=== PATIENT | male | born 1955 | race Caucasian/White ===

== ENCOUNTER → 2018-02-02 09:16 | Outpatient (CLI) | payer BC, SELFPAY ==
[2018-02-02 10:11] LABS: Alanine Aminotransferase 26 U/L (12-78); Albumin Level 3.6 gm/dL (3.4-5.0); Albumin/Globulin Ratio 1.1 (1.1-1.8); Alkaline Phosphatase 72 U/L (46-116); Anion Gap 10.8 mEq/L (5-15); Aspartate Amino Transferase 16 U/L (15-37); Bilirubin,Total 0.3 mg/dL (0.2-1.0); Blood Urea Nitrogen 25 mg/dL (7-18); Calcium 8.8 mg/dL (8.5-10.1); Carbon Dioxide 30 mmol/L (21.0-32.0); Chloride 105 mmol/L (98-107); Chol/HDL Ratio 4.5 (1-3.5); Cholesterol 191 mg/dL (140-200); Creatinine,Serum 1.09 mg/dL (0.70-1.30); Estimated Glomerular Filt Rate 69 ml/min (>60); GFR (African American) 83 ML/MIN (>60); Globulin 3.3 gm/dl (1.3-3.2); Glucose 136 mg/dL (74-106); HDL Cholesterol 42 mg/dL (27-67); LDL Cholesterol 118 mg/dL (0-130); Potassium 4.8 mmoL/L (3.5-5.1); Sodium 141 mmol/L (136-145); Total Protein,Serum 6.9 gm/dL (6.4-8.2); Triglycerides 157 mg/dL (30-200); VLDL Cholesterol 31 mg/dL (0-40)
[2018-02-02 10:25] LABS: Hemoglobin A1C 6.6 % (0.0-7.0)
== END ==
PROVIDERS: Visit Provider Nurse Practitioner Family
DX: E11.29 Type 2 diabetes mellitus with other diabetic kidney complication (principal); I10 Essential (primary) hypertension
CPT/HCPCS: 36415; 80053; 80061; 83036

== ENCOUNTER → 2019-03-17 10:17 | Outpatient (CLI) | payer BC, SELFPAY ==
[2019-03-17 11:06] LABS: Basophils # 0.1 K/mm3 (0-0.2); Basophils % 0.8 % (0.1-2.0); Eosinophils # 0.5 K/mm3 (0.0-0.4); Eosinophils % 4.9 % (0.1-12.0); Hematocrit 40.5 % (42.0-52.0); Hemoglobin 12.8 g/dL (14.1-18.0); Lymphocytes # 2.9 K/mm3 (0.7-4.5); Lymphocytes % 31.1 % (10-50); Mean Corpuscular HGB Conc 31.5 g/dL (31.8-35.4); Mean Corpuscular Hemoglobin 28.2 pg (27.0-31.2); Mean Corpuscular Volume 89.3 fl (80-94); Mean Platelet Volume 7.7 fl (7.4-10.4); Monocytes # 0.5 K/mm3 (0.1-1.0); Neutrophils # 5.4 K/mm3 (1.8-7.8); Neutrophils % 58.3 % (37.0-80.0); Platelet Count 295 K/mm3 (142-424); Red Blood Count 4.53 M/mm3 (4.60-6.20); Red Cell Distribution Width 13.1 % (11.5-17.5); White Blood Count 9.3 K/mm3 (4.8-10.8)
[2019-03-17 11:46] LABS: Hemoglobin A1C 6.3 % (0.0-7.0)
[2019-03-17 12:59] LABS: Alanine Aminotransferase 24 U/L (12-78); Albumin Level 3.6 gm/dL (3.4-5.0); Albumin/Globulin Ratio 1.2 (1.1-1.8); Alkaline Phosphatase 66 U/L (46-116); Anion Gap 13.9 mEq/L (5-15); Aspartate Amino Transferase 16 U/L (15-37); Bilirubin,Total 0.3 mg/dL (0.2-1.0); Blood Urea Nitrogen 23 mg/dL (7-18); Calcium 9.3 mg/dL (8.5-10.1); Carbon Dioxide 28 mmol/L (21.0-32.0); Chloride 107 mmol/L (98-107); Chol/HDL Ratio 4.2 (1-3.5); Cholesterol 174 mg/dL (140-200); Creatinine,Serum 1.24 mg/dL (0.70-1.30); Estimated Glomerular Filt Rate 59 ml/min (>60); GFR (African American) 71 ML/MIN (>60); Globulin 3.1 gm/dl (1.3-3.2); Glucose 115 mg/dL (74-106); HDL Cholesterol 41 mg/dL (27-67); LDL Cholesterol 100 mg/dL (0-130); Potassium 4.9 mmoL/L (3.5-5.1); Sodium 144 mmol/L (137-145); Thyroid Stimulating Hormone 1.81 uIU/ml (0.358-3.740); Total Protein,Serum 6.7 gm/dL (6.4-8.2); Triglycerides 166 mg/dL (30-200); VLDL Cholesterol 33 mg/dL (0-40)
== END ==
PROVIDERS: Visit Provider Nurse Practitioner Family
DX: I10 Essential (primary) hypertension (principal); E78.5 Hyperlipidemia, unspecified; E11.29 Type 2 diabetes mellitus with other diabetic kidney complication; Z79.84 Long term (current) use of oral hypoglycemic drugs
CPT/HCPCS: 36415; 80053; 80061; 83036; 84443; 85025

== ENCOUNTER → 2020-03-06 07:54 | Outpatient (CLI) | payer BC, SELFPAY ==
[2020-03-06 09:40] LABS: Basophils # 0.1 K/mm3 (0-0.2); Basophils % 0.8 % (0.1-2.0); Eosinophils # 0.5 K/mm3 (0.0-0.4); Eosinophils % 4.7 % (0.1-12.0); Hematocrit 41.6 % (42.0-52.0); Hemoglobin 13.6 g/dL (14.1-18.0); Lymphocytes # 3.2 K/mm3 (0.7-4.5); Mean Corpuscular HGB Conc 32.7 g/dL (31.8-35.4); Mean Corpuscular Hemoglobin 29.2 pg (27.0-31.2); Mean Corpuscular Volume 89.3 fl (80-94); Mean Platelet Volume 8.3 fl (7.4-10.4); Monocytes # 0.5 K/mm3 (0.1-1.0); Monocytes % 5.1 % (1.7-9.3); Neutrophils # 5.7 K/mm3 (1.8-7.8); Neutrophils % 57.4 % (37.0-80.0); Platelet Count 273 K/mm3 (142-424); Red Blood Count 4.65 M/mm3 (4.60-6.20); Red Cell Distribution Width 13.6 % (11.5-17.5)
[2020-03-06 10:14] LABS: Chloride 104 mmol/L (98-107); Potassium 4.3 mmoL/L (3.5-5.1); Sodium 140 mmol/L (136-145)
[2020-03-06 10:17] LABS: Alanine Aminotransferase 18 U/L (12-78); Albumin/Globulin Ratio 1.4 (1.1-1.8); Alkaline Phosphatase 75 U/L (38-126); Anion Gap 11.3 mEq/L (5-15); Aspartate Amino Transferase 22 U/L (17-59); Bilirubin,Total 0.4 mg/dl (0.2-1.3); Blood Urea Nitrogen 18 mg/dl (9-20); Calcium 9.4 mg/dl (8.4-10.2); Carbon Dioxide 29 mmol/L (22.0-30.0); Chol/HDL Ratio 4.4 (1-3.5); Cholesterol 189 mg/dl (140-200); Estimated Glomerular Filt Rate 67 ml/min (>60); GFR (African American) 82 ML/MIN (>60); Globulin 2.9 g/dL (1.3-3.2); Glucose 133 mg/dl (74-100); HDL Cholesterol 43 mg/dl (40-60); Iron 69 ug/dL (49-181); Total Protein,Serum 6.9 g/dl (6.3-8.2); Triglycerides 197 mg/dl (30-150); VLDL Cholesterol 39 mg/dL (0-40)
[2020-03-06 10:27] LABS: Total Iron Binding Capacity 268 ug/dL (261-462)
[2020-03-06 10:49] LABS: Prostate Specific Ag Screen 0.6 ng/ml (0.0-4.0)
[2020-03-06 11:10] LABS: Ferritin 195 ng/ml (17.9-464); Vitamin B12 180 pg/mL (239-931)
[2020-03-06 11:24] LABS: Hemoglobin A1C 7.1 % (4.0-6.0)
== END ==
PROVIDERS: Visit Provider Nurse Practitioner Family
DX: E11.29 Type 2 diabetes mellitus with other diabetic kidney complication (principal); E78.5 Hyperlipidemia, unspecified; I10 Essential (primary) hypertension; D64.9 Anemia, unspecified; R39.11 Hesitancy of micturition; Z79.84 Long term (current) use of oral hypoglycemic drugs
CPT/HCPCS: 36415; 80053; 80061; 82607; 82728; 82746; 83036; 83540; 83550; 85025; G0103

== ENCOUNTER → 2021-02-12 08:01 | Outpatient (CLI) | payer BC, SELFPAY ==
[2021-02-12 09:18] LABS: Basophils # 0.1 K/mm3 (0-0.2); Basophils % 1.1 % (0.1-2.0); Eosinophils # 0.4 K/mm3 (0.0-0.4); Eosinophils % 4.1 % (0.1-12.0); Hematocrit 39.8 % (42.0-52.0); Hemoglobin 12.5 g/dL (14.1-18.0); Lymphocytes # 3.6 K/mm3 (0.7-4.5); Lymphocytes % 35.2 % (10-50); Mean Corpuscular HGB Conc 31.5 g/dL (31.8-35.4); Mean Corpuscular Hemoglobin 28.1 pg (27.0-31.2); Mean Corpuscular Volume 89.3 fl (80-94); Mean Platelet Volume 7.6 fl (7.4-10.4); Monocytes # 0.6 K/mm3 (0.1-1.0); Monocytes % 5.7 % (1.7-9.3); Neutrophils # 5.5 K/mm3 (1.8-7.8); Platelet Count 350 K/mm3 (142-424); Red Blood Count 4.45 M/mm3 (4.60-6.20); Red Cell Distribution Width 14.2 % (11.5-17.5); White Blood Count 10.1 K/mm3 (4.8-10.8)
[2021-02-12 11:13] LABS: Alanine Aminotransferase 19 U/L (12-78); Albumin Level 4.1 g/dl (3.5-5.0); Albumin/Globulin Ratio 1.7 (1.1-1.8); Alkaline Phosphatase 66 U/L (38-126); Anion Gap 9.8 mEq/L (5-15); Aspartate Amino Transferase 24 U/L (17-59); Bilirubin,Total 0.4 mg/dl (0.2-1.3); Blood Urea Nitrogen 19 mg/dl (9-20); Calcium 9.5 mg/dl (8.4-10.2); Carbon Dioxide 31 mmol/L (22.0-30.0); Chloride 101 mmol/L (98-107); Chol/HDL Ratio 4.7 (1-3.5); Cholesterol 183 mg/dl (140-200); Estimated Glomerular Filt Rate 61 ml/min (>60); GFR (African American) 74 ML/MIN (>60); Globulin 2.4 g/dL (1.3-3.2); Glucose 144 mg/dl (74-100); HDL Cholesterol 39 mg/dl (40-60); Potassium 4.8 mmoL/L (3.5-5.1); Sodium 137 mmol/L (136-145); Total Protein,Serum 6.5 g/dl (6.3-8.2); Triglycerides 191 mg/dl (30-150); VLDL Cholesterol 38 mg/dL (0-40)
[2021-02-12 11:23] LABS: Direct LDL Cholesterol 117.22 mg/dL (100-129)
[2021-02-12 12:02] LABS: Vitamin B12 716 pg/mL (239-931)
[2021-02-12 14:55] LABS: Hemoglobin A1C 7.4 % (4.0-6.0)
== END ==
PROVIDERS: Visit Provider Nurse Practitioner Family
DX: E11.29 Type 2 diabetes mellitus with other diabetic kidney complication (principal); E78.5 Hyperlipidemia, unspecified; D64.9 Anemia, unspecified; E53.8 Deficiency of other specified B group vitamins; Z79.84 Long term (current) use of oral hypoglycemic drugs
CPT/HCPCS: 36415; 80053; 80061; 82607; 83036; 85025

== ENCOUNTER → 2022-03-04 08:05 | Outpatient (CLI) | payer MEDICARE, SELFPAY ==
[2022-03-04 08:39] LABS: Basophils # 0.2 K/mm3 (0-0.2); Basophils % 1.6 % (0.1-2.0); Eosinophils # 0.4 K/mm3 (0.0-0.4); Eosinophils % 3.3 % (0.1-12.0); Hemoglobin 12.5 g/dL (14.1-18.0); Lymphocytes # 3.6 K/mm3 (0.7-4.5); Lymphocytes % 30.9 % (10-50); Mean Corpuscular HGB Conc 32.1 g/dL (31.8-35.4); Mean Corpuscular Volume 84.3 fl (80-94); Mean Platelet Volume 7.7 fl (7.4-10.4); Monocytes # 0.6 K/mm3 (0.1-1.0); Monocytes % 5.1 % (1.7-9.3); Neutrophils # 6.9 K/mm3 (1.8-7.8); Platelet Count 382 K/mm3 (142-424); Red Blood Count 4.63 M/mm3 (4.60-6.20); Red Cell Distribution Width 14.9 % (11.5-17.5); White Blood Count 11.7 K/mm3 (4.8-10.8)
[2022-03-04 09:01] LABS: Alanine Aminotransferase 17 U/L (12-78); Albumin Level 3.9 g/dl (3.5-5.0); Albumin/Globulin Ratio 1.4 (1.1-1.8); Alkaline Phosphatase 84 U/L (38-126); Anion Gap 9.5 mEq/L (5-15); Aspartate Amino Transferase 22 U/L (17-59); Bilirubin,Total 0.4 mg/dl (0.2-1.3); Blood Urea Nitrogen 22 mg/dl (9-20); Calcium 9.2 mg/dl (8.4-10.2); Carbon Dioxide 31 mmol/L (22.0-30.0); Chloride 104 mmol/L (98-107); Chol/HDL Ratio 4.9 (1-3.5); Cholesterol 185 mg/dl (140-200); Estimated Glomerular Filt Rate 51 ml/min (>60); GFR (African American) 61 ML/MIN (>60); Globulin 2.7 g/dL (1.3-3.2); Glucose 136 mg/dl (74-100); HDL Cholesterol 38 mg/dl (40-60); Potassium 5.5 mmoL/L (3.5-5.1); Sodium 139 mmol/L (136-145); Total Protein,Serum 6.6 g/dl (6.3-8.2); Triglycerides 197 mg/dl (30-150); VLDL Cholesterol 39 mg/dL (0-40)
[2022-03-04 09:09] LABS: Hemoglobin A1C 7.2 % (4.0-6.0)
[2022-03-04 09:12] LABS: Direct LDL Cholesterol 115.85 mg/dL (100-129)
[2022-03-04 09:56] LABS: Vitamin B12 > 1000 pg/mL (239-931)
== END ==
PROVIDERS: PCP Nurse Practitioner Family; Visit Provider Nurse Practitioner Family
DX: E11.29 Type 2 diabetes mellitus with other diabetic kidney complication (principal); I10 Essential (primary) hypertension; E53.8 Deficiency of other specified B group vitamins; Z79.84 Long term (current) use of oral hypoglycemic drugs
CPT/HCPCS: 36415; 80053; 80061; 82607; 83036; 85025

== ENCOUNTER → 2022-03-24 13:30 | Outpatient (CLI) | payer MEDICARE, SELFPAY ==
--- NOTE | 2022-03-24 13:34 | US_ITS ---
FINAL REPORT TECHNIQUE: Ultrasound images of the kidneys were obtained. CLINICAL HISTORY: ELEVATED CREAT, PROTEINURIA FINDINGS: US RETROPERITONEAL The right kidney measures 14.2 cm in length. There is a hypoechoic mass arising from the inferior pole measuring 8 cm. The left kidney measures 9.4 cm in length. No hydronephrosis or mass is seen. There is cortical thinning. Incidental note is made of fatty infiltrated liver. IMPRESSION: 1. Solid right renal mass. Recommend renal mass protocol CT. 2. Atrophic left kidney. Reviewed, Interpreted and Dictated by Samantha Mendoza MD Transcribed by Brenda Ramirez Authenticated and [facility]
== END ==
LOC: RAD 13:30
PROVIDERS: PCP Nurse Practitioner Family; Visit Provider Nurse Practitioner Family
DX: R80.9 Proteinuria, unspecified (principal); R79.89 Other specified abnormal findings of blood chemistry
CPT/HCPCS: 76770

== ENCOUNTER → 2022-03-29 08:46 | Outpatient (CLI) | payer MEDICARE, SELFPAY ==
[2022-03-29 09:17] LABS: Blood Urea Nitrogen 21 mg/dl (9-20); Estimated Glomerular Filt Rate 51 ml/min (>60); GFR (African American) 61 ML/MIN (>60)
--- NOTE | 2022-03-29 09:28 | CT_ITS ---
FINAL REPORT TECHNIQUE: Axial CT images of the abdomen and pelvis were obtained before and after the administration of IV contrast. Oral contrast was administered.This study was performed with techniques to keep radiation doses as low as reasonably achievable (ALARA). Individualized dose reduction techniques using automated exposure control or adjustment of mA and/or kV according to the patient''s size were employed. CLINICAL HISTORY: URINARY HESITANCE,RENAL MASS (Lt) FINDINGS: Abdomen: The lung bases are clear. The heart is normal in size. The liver has an unremarkable appearance, without evidence of mass or biliary duct dilatation. The spleen is unremarkable. No adrenal masses present. The pancreas has an unremarkable appearance. There is an enhancing mass in the anterior aspect of the right kidney measuring 8.7 cm which has the appearance consistent with renal neoplasm, likely renal cell carcinoma. The renal veins are normal. There is mild vascular calcification. The aorta is normal in caliber. There is no free fluid or adenopathy. Precontrast images demonstrate a 13 mm nonobstructing stone in the lower pole of the left kidney. There is moderate to severe left renal atrophy with cortical thinning. Pelvis: The appendix is normal. The urinary bladder is unremarkable. No inflammatory process is seen. There is no evidence of mass or adenopathy. There is no evidence of bowel obstruction. IMPRESSION: Right renal mass, likely renal cell carcinoma. Nonobstructing left renal stone. Reviewed, Interpreted and Dictated by Arthur Jacobsen III, MD Transcribed by Dena Sampson Authenticated and [facility] [place] [place]
== END ==
LOC: RAD 08:46
PROVIDERS: Internal Medicine Adolescent Medicine; PCP Nurse Practitioner Family; Visit Provider Nurse Practitioner Family
DX: N28.89 Other specified disorders of kidney and ureter (principal); R89.9 Unspecified abnormal finding in specimens from other organs, systems and tissues; R39.11 Hesitancy of micturition
CPT/HCPCS: 36415; 74178; 82565; 84520; Q9967

== ENCOUNTER 2025-01-27 12:54 | Outpatient (CLI) | payer MEDICARE, SELFPAY ==
--- OUTSIDE RECORDS SUMMARY | 2024-12-08 09:30 | XMS_ITS | Encounter Summary ---
Author Organization Healthcare Address [address] [place] [address] Care Team Providers Care Ordnance Equipment Worker Name Role Phone Brandi Ramírez APRN Primary Care Provider Reason for Visit * Reason Comments Follow-up Renal cell carcinoma , unspecified laterality Encounter Details Date Type Department Care Team (Latest Contact Info) Description 12/08/2024 9:30 AM EST Office Visit [facility] Multidisciplinary Oncology Clinic [address] [place] [address] Princess Yen MD [address] [place] [address] Renal cell carcinoma, unspecified laterality (Primary Dx) Social History Tobacco Use Types Packs/Day Years Used Date Smoking Tobacco: Never Passive Smoke Exposure: Past Smokeless Tobacco: Never Alcohol Use Standard Drinks/Week Comments Never 0 (1 standard drink = 0.6 oz pur e alcohol) PHQ-2 Answer Date Recorded Patient Health Questionnaire-2 Score 0 11/17/2024 AUDIT-C Answer Date Recorded Q1: How often do you have a drink containing alcohol? Never 09/25/2024 Q2: How many drinks containi ng alcohol do you have on a typical day when you are drinking? Patient does not drink Q3: How often do you have si x or more drinks on one occasion? Never 09/25/2024 CAGE ASSESSMENT Answer Date Recorded Cage unable to access Not on file 05/23/2022 Cage max number of drinks Not on file 2022 Cage Beverages a week Not on file 05/23/2022 Have you ever felt you should CUT down on your d rinking? 0 05/23/2022 Have you been ANNOYED by people criticizing your drinking? 0 05/23/2022 Have you felt GUILTY about your drinking? 0 05/23/2022 Have you had a drink first t raul in the morning (EYE-INSURANCE ADMINISTRATOR) to steady your nerves or to get rid of a hangover? 0 05/23/2022 CAGE Questionnaire Score 0 023 PHQ-2A Answer Date Recorded Depression Risk 0 12/08/2024 PHQ-9A Answer Date Recorded Depression Risk Score 0 12/08/2024 Sex and Gender Information Value Date Recorded Sex Assigned at Not on file Legal Sex Male 11:42 AM EDT Gender Identity Not on file Sexual Orientation Not on file documented as of this encounter Last Filed Vital Signs Vital Sign Reading Time Taken Comments Blood Pressure 162/78 12/08/2024 9:02 AM EST Pulse 59 12/08/2024 9:02 AM EST Temperature 36.5 C (97.7 F) 12/08/2024 9:02 AM EST Respiratory Rate 16 12/08/2024 9:02 AM EST Oxygen Saturation 96% 12/08/2024 9:02 AM EST Inhaled Oxygen Concentration - - Weight 115 kg (254 lb 3.1 oz) 12/08/2024 9:02 AM EST Height 182.9 cm (6') 12/08/2024 9:02 AM EST Body Mass Index 34.47 12/08/2024 9:02 AM EST documented in this encounter Functional Status * Calculated C-SSRS Risk Score (Lifetime/Recent) Answer Date of Assessment Author No Risk Indicated 12/08/2024 8:58 AM EST Marichuy Hummel * Question Answer Date of Assessment Author 1. Wish to be (Past 1 Month) No 025 8:58 AM EST Marichuy Hummel 2. Non-Specific Active Suici mecca Thoughts (Past 1 Month) No 12/08/2024 8:58 AM EST Melvi Hummel 6. Suicidal Behavior (Lifetime) No 8:58 AM EST Marichuy Hummel documented as of this encounter Miscellaneous Notes * Addendum Note - Princess Yen MD - 12/08/2024 9:30 AM ESTAddended by: PRINCESS YEN on: 12/08/2024 09:33 AM Modules accepted: Orders * Progress Notes - Princess Yen MD - 12/08/2024 9:30 AM EST .[facility] Clinic Note Patient Name: Rivera Nguyen Date of : 1955 69 y.o. Referring Physician:No referring provider defined for this encounter. Encounter Date: 12/08/2024 Chief Complaint: Chief Complaint Patient presents with Follow-up Renal cell carcinoma, unspecified laterality Verbal consent was obtained to use ambient listening technology to assist in the documentation of the encounter: yes Interval History: History of Present Illness The patient is a male who presents for evaluation of renal cell cancer. He reports a satisfactory experience with the initial round of treatment, with no significant adverse reactions such as shaking. However, facial redness was observed post-infusion, which persisted for several days before resolving. Additionally, an itchy spot developed on his foot, which has since evolved into dry skin. No symptoms of diarrhea, shortness of breath, or chest pain have been experienced. No medication was required for these symptoms. Fatigue was noted following the treatment, necessitating rest in the afternoon, but he was able to resume work the following day. No leg swelling, abdominal pain, or constipation are reported. A sore throat was experienced, which resolved within acouple of weeks. FAMILY HISTORY - Has 9 brothers, 5 of whom have Current Treatment Regimen: Ipi + nivo Oncology History: Oncology History Overview Note History of left atrophic kidney - followed by surfacer - 9 cm right renal mass s/p right partial nephrectomy on 05/23/22 (Path pT2a, ccRCC, G 3) CT CAP - 09/27- post surgical changes without evidence of mets. Was on active surveillance with imaging Patient had basal cell carcinoma excised from his chest 10/19/2023. -Patient had imaging 09/21/2023 which shows a subcentimeter lung nodule and subcentimeter nodular appearance around the partial nephrectomy bed. On 08/20/2024, the clung nodule was found to have enlarged to 8mm with enlargement of perinephric nodules ( multiple nodules with largest of 1.3 cm ) -multidisciplinary tumor board discussion we will proceed with a percutaneous right perinephric mass biopsy to confirm disease recurrence prior to starting systemic therapy. Patient was deemed not a candidate for another surgery or radiation given his CKD as this would likely place him dialysis dependent. 10/19/24- Right perinephric soft tissue biopsy - residual clear cell RCC Cancer (CMS/HCC) Initial Diagnosis Cancer (CMS/HCC) Renal cell carcinoma 10/27/2024 Initial Diagnosis Renal cell carcinoma 11/17/2024 - Chemotherapy nivolumab (Opdivo) 340 mg in sodium chloride 0.9 % 100 mL IVPB, 3 mg/kg = 340 mg, Intravenous, Once, 1 of 4 cycles Administration: 340 mg (11/17/2024) ipilimumab (Yervoy) 115 mg in sodium chloride 0.9 % 50 mL IVPB, 1 mg/kg = 115 mg, Intravenous, Once, 1 of 4 cycles Administration: 115 mg (11/17/2024) Past Medical, Surgical, Family and Social History: Past Medical History[1] Surgical History[2] Family History[3] Social History[4] Allergies: Patient has no known allergies. Medications: Current Medications[5] Review of Systems: A comprehensive 14 point review of systems was performed, noted to be negative with the pertinent positives documented in the HPI section of this note. Vital Signs: Visit Vitals BP (!) 162/78 Pulse 59 Temp 36.5 ??C (97.7 ??F) (Oral) Resp 16 Physical Exam perfromance status - 0 General Appearance: No distress, no fatigue HEENT: No sore throat Respiratory: clear, AEBE Cardiovascular: Normal, no rubs or murmurs Gastrointestinal: No abdominal pain, no constipation Back, Musculoskeletal: No swelling of legs Extremities: No swelling of legs Skin: Dry skin on foot, previously itchy Neurological: no focal neurologic deficit Results Labs - White blood cell count: Normal - Kidney function tests: Stable - Thyroid function tests: Normal Labs, Imaging, Pathology: Lab Results Component Value Date WBC 10.48 (H) 12/08/2024 RBC 4.38 (L) 12/08/2024 HGB 12.4 (L) 12/08/2024 HCT 39.3 (L) 12/08/2024 MCV 90 12/08/2024 MCHC 31.6 12/08/2024 RDW 13.2 12/08/2024 PLT 283 12/08/2024 MPV 9.9 12/08/2024 Lab Results Component Value Date BUN 48 (H) 12/01/2024 CL 104 12/01/2024 NA 139 12/01/2024 K 4.5 12/01/2024 TP 7.4 12/01/2024 AST 18 12/01/2024 ALT 9 (L) 12/01/2024 Blood pressure (!) 162/78, pulse 59, temperature 36.5 ??C (97.7 ??F), temperature source Oral, resp. rate 16, height 1.829 m (6'), weight 115 kg (254 lb 3.1 oz), SpO2 96%. Imaging - nothing new Performance Status: 0 Assessment & Plan Recurrent metastatic RCC- oligometastatic- not a candidate for metastectomy Favorable risk History of atrophic left kidney -9 cm right renal mass s/p right partial nephrectomy on 05/23/22 (Path pT2a, ccRCC, G3). didn't haveany adjuvant treatment - imaging 09/21/2023 which shows a subcentimeter lung nodule and subcentimeter nodular appearance around the partial nephrectomy bed. On 08/20/2024, the nodule was found to have enlarged to 8mm with enlargement of perinephric nodules. - 09/06/24- biopsy of perinephric soft tissue nodule - residual clear cell RCC Treatment plan - Ipi+ Nivo followed by Nivo maintenance Plan - he is here for cycle 2 - clinically doing well, no new symptoms - labs from today reviewed - stable , cmp from last week - stable cr - 2.3 - RTC before cycle 3 - ordered scan after 4 cycles - due around feb 02 Other comorbidities CKD-follows with Nephrology - Currently on Farxigo and valsartan Hypertension Nephrolithiasis T2DM- not on any medications I have personally conducted this oncology consultation, reviewed the patient???s medical history, performed the appropriate evaluation, and formulated the assessment and plan as documented. This notewas prepared through dictation and verified for errors. The information provided is complete and correct to the best of my knowledge and clinical judgment. Thank you for the consult. I have reviewed the patient???s medical history, performed the appropriate evaluation, and formulated the assessment and plan as documented. This note was prepared through dictation and verified for errors. The information provided is complete and correct to the best of my knowledge and clinical judgment. Please feel free to reach out with any questions or if further clarification is needed. Princess Troy MD Galvanometer Assembler, Medical Oncology [facility] [1] Past Medical History: Diagnosis Date Cancer (CMS/HCC) Diabetic acidosis, type II FSBS 128-145 HTN (hypertension) Seasonal allergies [2] Past Surgical History: Procedure Laterality Date KNEE SURGERY RENAL BIOPSY [3] History reviewed. No pertinent family history. [4] Social History Tobacco Use Smoking status: Never Passive exposure: Past Smokeless tobacco: Never Vaping Use Vaping status: Never Used Substance Use Topics Alcohol use: Never Drug use: Never [5] Current Outpatient Medications: dapagliflozin (Farxiga) 10 MG tablet, Take 1 tablet by mouth daily., Disp: 30 tablet, Rfl: 11 hydroCHLOROthiazide (HYDRODiuril) 25 MG tablet, Take 1 tablet by mouth daily., Disp: 30 tablet, Rfl: 11 NIFEdipine CC (Adalat CC) 60 MG 24 hr tablet, Take 1 tablet by mouth daily. Do not crush, chew, or split., Disp: 90 tablet, Rfl: 3 tiZANidine (Zanaflex) 4 MG tablet, Take 1 tablet by mouth at night as needed for muscle spasms. PRN, Disp: 30 tablet, Rfl: 1 valsartan (Diovan) 160 MG tablet, Take 0.5 tablets by mouth 2 times a day., Disp: 180 tablet, Rfl: 3 furosemide (Lasix) 40 MG tablet, Take 1 tablet by mouth daily as needed (lower extremity edema). (Patient not taking: Reported on 12/08/2024), Disp: 30 tablet, Rfl: 11 prochlorperazine (Compazine) 10 MG tablet, Take 1 tablet by mouth every 6 hours as needed for nausea or vomiting. (Patient not taking: Reported on 12/08/2024), Disp: 30 tablet, Rfl: 5 * Progress Notes - Paolo Wheeler, PharmD - 12/08/2024 9:30 AM EST Pharmacy Hematology/Oncology Treatment Note Rivera Nguyen is a 69 y.o. 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 Cancer Staging No matching staging information was found for the patient. . Study Patient: no Treatment Plan reviewed for Ipilimumab/Nivolumab every 21 days. [x] Follow-Up Clinical Review for Cycle 2 [] Follow-Up Clinical Review for Continuous Oral Therapy Interval History: Mr. Nguyen is being seen for ccRCC concerning for metastatic recurrence. His performance status is good, but given his baseline kidney function we are proceeding with immunotherapy. He was consented and educated in clinic today. 12/08/24: Mr. Nguyen tolerated cycle 1 well with no concerns. He did express some flushing, but hassince resolved. The flushing did not occur during infusion so no intervention needed at this time. Will continue to monitor. Labs reviewed and appropriate for treatment today. Of note, Scr stable around 2.26 today (around baseline). He continues to follow with nephrology forCKD/proteinuria. Today's Wt: Wt Readings from Last 1 Encounters: 12/08/24 115 kg (254 lb 6.6 oz) Dosing Wt: 116 kg Dosing Ht: 175.3 cm DosingBSA: 2.38 m2 Recent Labs: Lab Results Component Value Date WBC 10.48 (H) 12/08/2024 HGB 12.4 (L) 12/08/2024 HCT 39.3 (L) 12/08/2024 MCV 90 12/08/2024 PLT 283 12/08/2024 Lab Results Component Value Date GLUCOSE 125 (H) 12/08/2024 CALCIUM 9.2 12/08/2024 NA 140 12/08/2024 K 4.3 12/08/2024 CO2 25 12/08/2024 CL 104 12/08/2024 BUN 46 (H) 12/08/2024 CREATININE 2.26 (H) 12/08/2024 Lab Results Component Value Date ALT 14 12/08/2024 AST 17 12/08/2024 ALKPHOS 82 12/08/2024 BILITOT 0.2 12/08/2024 Lab Results Component Value Date NEUTROABS 6.19 (H) 12/08/2024 Lab Results Component Value Date MG 2.2 06/22/2023 Lab Results Component Value Date TSH 1.31 12/08/2024 No results found for: FREET4 Lab Results Component Value Date URINEPRO 100 (A) 12/01/2024 Vitals: Visit Vitals BP (!) 162/78 Pulse 59 Temp 36.5 ??C (97.7 ??F) (Oral) Resp 16 Other Relevant Monitoring: Savanah 09/07: PBRM1 mut, VHL V87fs mut, TMB low, VANESSA Treatment/Therapy Plan: Ipilimumab 1 mg/kg (115 mg) IV D1 Nivolumab 3mg/kg (340 mg) IV D1 Every 21 days x 4 cycles Followed by Nivolumab maintenance 3 mg/kg IV D1 Every 21 days [x] No dose adjustments made Current Treatment Plan History: Ipi/nivo C1: 11/17/24 C2: 12/08/24 Prior Treatment History: 05/2022: R partial nephrectomy Plan: Patient will return to clinic in 3 weeks. Will follow-up at that time. Pharmacist Attestation: Paolo Wheeler PharmD, [facility] Hematology/Oncology Clinical Potato Sorter documented in this encounter Plan of Treatment Upcoming Encounters Date Type Department Care Team (Late st Contact Info) Description 02/02/2025 12:50 PM EST Appointment [facility] [address] [place] [id number] 02/09/2025 10:30 AM EST Clinical Support [facility] Multidisciplinary Oncology Clinic [address] [place] [phone] 02/09/2025 11:00 AM EST Office Visit [facility] [address] [place] [id number] Princess Yen MD [address] [place] [address] 02/09/2025 12:00 PM EST Appointment [facility] [address] [place] [address] 04/02/2025 8:00 AM EST Clinical Support [facility] [address] [facility] [place] [address] 04/09/2025 8:40 AM EST Office Visit [facility] Nephrology, [facility] [address] [place] [address] Lila Farris MD [address] [place] [address] documented as of this encounter Results * TSH Reflex FT4 (12/08/2024 8:42 AM EST) Thyroid Stimulating Hormone, Plasma 1.31 0.40 - 4.20 uIU/mL 12/08/2024 9:54 AM EST [facility] Blood Venous blood specimen / Unknown Venipuncture / Unknown 12/08/2024 8:42 AM EST 12/08/2024 9:19 AM EST us Princess Troy MD LAB BLOOD ORDERABLES Fi nal Result [facility] [address] [place] [address] documented in this encounter Visit Diagnoses Diagnosis Renal cell carcinoma, unspecified laterality- Primary Renal cell carcinoma, unspecified laterality- Primary documented in this encounter Additional Health Concerns Assessment Noted Time A fall risk assessment has been complete d for the patient 12/08/2024 9:00 AM EST A Body Mass Index follow-up plan has been documented for the patient 12/08/2024 12:00 PM EST documented as of this encounter Care Teams Ordnance Equipment Worker Relationship Specialty Start Date End Date Brandi Ramírez APRN [id number] PCP - General 04/26/22 documented as of this encounter
--- OUTSIDE RECORDS SUMMARY | 2024-12-08 09:31 | XMS_ITS | Encounter Summary ---
Author Organization [facility] Address [address] [id number] Care Team Providers Care Resident Physician In Radiology Name Role Phone Brandi Ramírez APRN Primary Care Provider [phone] Reason for Visit * Episode Based Medications (Routine) - Closed Specialty Diagnoses / Procedures Referred By Apolinar t Referred To Contact Diagnoses Renal cell carcinoma, unspecified laterality Procedures Nivolumab / Ipilimumab Every 21 Days Hari Nunes MD [address] [address] Phone: tel: fax: Hari Nunes MD [address] [address] Phone: tel: fax: Referral ID Status Reason Start Date Expiration Date Visits Re quested Visits Authorized [id number] Closed 11/17/2024 05/19/2026 1 4 Encounter Details Date Type Department Care Team (Latest Contact Info) Description 12/08/2024 9:31 AM EST - 12/08/2024 11:59 PM [facility] Hospital Encounter [facility] [address] [place] [address] Renal cell carcinoma, unspecified laterality (Primary Dx) Discharge Disposition: Home or Self Care Social History Tobacco Use Types Packs/Day Years Used Date Smoking Tobacco: Never Passive Smoke Exposure: Past Smokeless Tobacco: Never Tobacco Cessation:Counseling Given: Not Answered Alcohol Use Standard Drinks/Week Comments Never 0 [...] drink first t raul in the morning ([employer]) to steady your nerves or to get [...] Sign Reading Time Taken Comments Blood Pressure 156/75 12/08/2024 9:32 AM EST Pulse 64 12/08/2024 9:32 AM EST Temperature 36.5 C (97.7 F) 12/08/2024 9:32 AM EST Respiratory Rate 18 12/08/2024 9:32 AM EST Oxygen Saturation 97% 12/08/2024 9:32 AM EST Inhaled Oxygen Concentration - - Weight 115 kg (254 lb 6.6 oz) 12/08/2024 9:32 AM EST Height 182.9 cm (6') 12/08/2024 9:32 AM EST Body Mass Index 34.5 12/08/2024 9:32 AM EST documented in this encounter Functional Status * Calculated C-SSRS Risk Score (Lifetime/Recent) Answer Date of Assessment Author No Risk Indicated 12/08/2024 8:58 AM EST Marichuy Hummel * Question Answer Date of Assessment Author 1. Wish to be (Past 1 Month) No 025 8:58 AM Marichuy Beal 2. Non-Specific Active Suici mecca Thoughts (Past 1 Month) No 12/08/2024 8:58 AM Melvi Beal 6. Suicidal Behavior (Lifetime) No 5 8:58 AM Marichuy Beal documented as of this encounter Medications at Time of Discharge furosemide (Lasix) 40 MG tablet Take 1 tablet by mouth daily as needed (lower extremity edema). 30 tablet 11 10/08/2024 prochlorperazine (Compazine) 10 MG tabletIndications :Renal cell carcinoma, unspecified laterality Take 1 tablet by mouth every 6 hours as needed for nausea or vomiting. 30 tablet 5 10/27/2024 tiZANidine (Zanaflex) 4 MG tablet Take 1 tablet by mouth at night as needed for muscle spasms. PRN 30 tablet 1 10/08/2024 dapagliflozin (Farxiga) 10 MG tablet Take 1 tablet by mouth daily. 30 tablet 11 10/08/2024 5 hydroCHLOROthiazi de (HYDRODiuril) 25 MG tablet Take 1 tablet by mouth daily. 30 tablet 11 10/08/2024 5 NIFEdipine CC (Adalat CC) 60 MG 24 hr tablet Take 1 tablet by mouth daily. Do not crush, chew, or split. 90 tablet 3 10/08/2024 5 valsartan (Diovan) 160 MG tablet Take 0.5 tablets by mouth 2 times a day. 180 tablet 3 10/08/2024 5 documented as of this encounter Plan of Treatment Upcoming Encounters Date Type Department Care Team (Late st Contact Info) Description 02/02/2025 12:50 PM EST Appointment [facility] [address] [place] [address] 02/09/2025 10:30 AM EST Clinical Support [facility] Multidisciplinary Oncology Clinic [address] [place] [address] 02/09/2025 11:00 AM EST Office Visit [facility] Multidisciplinary Oncology Clinic [address] [place] [phone] Princess Yen MD [address] [place] [address] 02/09/2025 12:00 PM EST Appointment [facility] [address] [place] [phone] 04/02/2025 8:00 AM EST Clinical Support [facility] Laboratory Services [address] [facility], [address]st [place] [address] 04/09/2025 8:40 AM EST Office Visit [facility] Nephrology, Bone & Mineral Metabolism [address] [facility], [address] [place] [address] Lila Farris MD [address] [facility] [address] [place] [address] documented as of this encounter Visit Diagnoses Diagnosis Renal cell carcinoma, unspecified laterality- Primary Renal cell carcinoma, unspecified laterality- Primary documented in this encounter Administered Medications Inactive Administered Medications - up to 3 most recent administrations Medication Order MAR Action Action Date Dose Rate Site ipilimumab (Yervoy) 115 mg in sodium chloride 0.9 % 50 mL IVPB 115 mg (rounded from 116 mg = 1 mg/kg 116 kg Treatment plan Recorded weight), Intravenous, at 196 mL/hr, Administer over 30 Minutes, Once, Filter Required. Use 0.2 micron filter., On Sun12/08/24 at 1145, For 1 dose, Dilute in NS (Final concentration 1-2mg/mL)Indications:Renal cell carcinoma, unspecified laterality New Bag 12/08/2024 12:00 PM EST 115 mg 196 mL/hr nivolumab (Opdivo) 340 mg in sodium chloride 0.9 % 100 mL IVPB 340 mg (rounded from 348 mg = 3 mg/kg 116 kg Treatment plan Recorded weight), Intravenous, at 328 mL/hr, Administer over 30 Minutes, Once, Filter Required. Use 0.2 micron filter., On Sun12/08/24 at 1045, For 1 dose, NS 100 mLIndications:Renal cell carcinoma, unspecified laterality New Bag 12/08/2024 11:26 AM EST 340 mg 328 mL/hr documented in this encounter Additional Health Concerns Assessment Noted Time A fall risk assessment has been complete d for the patient 12/08/2024 9:00 AM EST A Body Mass Index follow-up plan has been documented for the patient 12/08/2024 12:00 PM EST documented as of this encounter Care Teams Resident Physician In Radiology Relationship Specialty Start Date End Date Brandi Ramírez APRN [id number] PCP - General 04/26/22 documented as of this encounter
--- OUTSIDE RECORDS SUMMARY | 2024-12-11 08:40 | XMS_ITS | Encounter Summary ---
Author Organization [facility] Address [address] [id number] Care Team Providers Care Satellite Dish Technician Name Role Phone Brandi Ramírez APRN Primary Care Provider [phone] Reason for Referral * Consultation (Routine) - Authorized Specialty Diagnoses / Procedures Referred By Contac t Referred To Contact Diagnoses Stage 3 chronic kidney disease, unspecified whether stage 3a or 3b CKD (CMS/HCC) Lila Farris MD [address] [place] [phone] Phone: tel: fax: Referral ID Status Reason Start Date Expiration Date V isits Requested Visits Authorized [id number] Authorized 12/11/2024 06/12/2026 1 1 * Consultation (Routine) - Authorized Specialty Diagnoses / Procedures Referred By Contac t Referred To Contact Diagnoses Stage 3 chronic kidney disease, unspecified whether stage 3a or 3b CKD ([facility]/HCC) Lila Farris MD [address] [place] [phone] Phone: tel: fax: Referral ID Status Reason Start Date Expiration Date V isits Requested Visits Authorized [id number] Authorized 12/11/2024 06/12/2026 1 1 Reason for Visit * Reason Comments Follow-up * Consultation (Routine) - Closed Specialty Diagnoses / Procedures Referred By Contac t Referred To Contact Diagnoses Stage 3 chronic kidney disease, unspecified whether stage 3a or 3b CKD ([facility]) Lila Farris MD [address] [place] [address] Phone: tel: fax: Referral ID Status Reason Start Date Expiration Date Visits Re quested Visits Authorized [id number] Closed 10/08/2024 04/09/2026 1 1 Encounter Details Date Type Department Care Team (Late st Contact Info) Description 12/11/2024 8:40 AM EST Office Visit [facility] Nephrology, Bone & Mineral Metabolism [address] , [address] [place] [address] Lila Farris MD [address] [place] [phone] Stage 3 chronic kidney disease, unspecified whether stage 3a or 3b CKD ([facility]) (Primary Dx); Hypertension, unspecified type; Proteinuria, unspecified type; H/O partial nephrectomy; Renal cell carcinoma, unspecified laterality Social History Tobacco Use Types Packs/Day Years [...] drink first t raul in the morning ([employer]) to steady your nerves or to get [...] Sign Reading Time Taken Comments Blood Pressure 145/81 12/11/2024 8:46 AM EST Pulse 62 12/11/2024 8:36 AM EST Temperature 36.6 C (97.8 F) 12/11/2024 8:36 AM EST Respiratory Rate - - Oxygen Saturation 95% 12/11/2024 8:36 AM EST Inhaled Oxygen Concentration - - Weight 115 kg (254 lb 10.1 oz) 12/11/2024 8:36 A M EST Height 182.9 cm (6') 12/11/2024 8:36 AM EST Body Mass Index 34.53 12/11/2024 8:36 AM EST documented in this encounter Miscellaneous Notes * Progress Notes - Ashwini Palacios MD - 12/11/2024 8:40 AM EST BRYAN Nguyen is a 69 y.o. male who presents for follow-up of CKD. Since last visit on 10/08/2024 he has no new complaints. Repeat CT scans on 09/21/2023 showed subcentimeter lung nodule and subcentimeter nodular appearance around the partial nephrectomy bed. On 08/20/2024, the nodule was found to have enlarged to 8mm with enlargement of perinephric nodules. Follows with heme onc and recently started infusions of ipilimumab/nivolumab every 21 days. He has had two cycles and he has tolerated well without side effects. Plan is to complete 4 cycles with repeat scans then consider maintenance therapy. 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 BP is elevated in office, but home readings are usually 120s/80s. At last visit decreased nifedipine to 60mg daily and added hydrochlorothiazide 25mg, valsartan 80 mg BID. LE edema improved. Denies dysuria, gross hematuria or foamy urine. Denies shortness of breath and cough. Denies nausea, vomiting, diarrhea. Current Outpatient Medications: dapagliflozin (Farxiga) 10 MG [...] extremity edema). (Patient not taking: Reported on 12/11/2024), Disp: 30 tablet, Rfl: 11 prochlorperazine (Compazine) 10 MG tablet, Take 1 tablet by mouth every 6 hours as needed for nausea or vomiting. (Patient not taking: Reported on 12/11/2024), Disp: 30 tablet, Rfl: 5 OBJECTIVE Vitals: 12/11/24 0846 BP: (!) 145/81 Pulse: Temp: SpO2: PHYSICAL EXAMINATION GENERAL: No acute distress. Generally well appearing, sitting up to a chair HENT: Head is normocephalic, atraumatic. Mouth with moist mucus membranes EYES: No ptosis. No scleral icterus. LUNGS: Non-labored respirations. No increased work of breathing or dyspnea with talking. EXTREMITIES: No cyanosis. No clubbing, Trace to 1+ edema in bilateral lower extremities. DERMATOLOGICAL: Skin is warm and dry and well perfused. No rashes noted. NEUROLOGICAL: Awake and alert. Normal cognition PSYCHIATRIC: Euthymic mood and affect. LAB RESULTS CBC Lab Results Component Value Date/Time WBC 10.48 (H) 12/08/2024 08:42 AM HGB 12.4 (L) 12/08/2024 08:42 AM HCT 39.3 (L) 12/08/2024 08:42 AM [ RFP Lab Results Component Value Date/Time NA 140 12/08/2024 08:42 AM K 4.3 12/08/2024 08:42 AM CL 104 12/08/2024 08:42 AM BUN 46 (H) 12/08/2024 08:42 AM MG 2.2 06/22/2023 08:09 AM PHOS 3.4 12/01/2024 08:06 AM UA @IPLABRCNT@[ Vitamin D No components found for: VITD PTH PTH Intact Total (pg/mL) Date Value 12/01/2024 113 (H) ASSESSMENT/PLAN Rivera Nguyen is a 69 y.o. male who presents for follow-up of CKD. Diagnoses and all orders for this visit: Stage 3 chronic kidney disease, unspecified whether stage 3a or 3b CKD ([facility]) - Renal Function Panel, Plasma; Future - CBC W/O Differential; Future - Urinalysis with reflex microscopic (Culture NOT Included); Future - Creatinine, Random, Urine; Future - Albumin-creatinine ratio, urine, random; Future - Protein, Random, Urine with Creatinine; Future - Follow Up Nephrology; Future - Renal Function Panel, Plasma; Future - CBC W/O Differential; Future - Urinalysis with reflex microscopic (Culture NOT Included); Future - Creatinine, Random, Urine; Future - Albumin-creatinine ratio, urine, random; Future - Protein, Random, Urine with Creatinine; Future - Follow Up Nephrology; Future Other orders - Follow Up Nephrology - Follow Up Nephrology - dapagliflozin (Farxiga) 10 MG tablet; Take 1 tablet by mouth daily. - hydroCHLOROthiazide (HYDRODiuril) 25 MG tablet; Take 1 tablet by mouth daily. - NIFEdipine CC (Adalat CC) 60 MG 24 hr tablet; Take 1 tablet by mouth daily. Do not crush, chew, or split. - valsartan (Diovan) 160 MG tablet; Take 0.5 tablets by mouth 2 times a day. Problem List Items Addressed This Visit Stage 3 chronic kidney disease ([facility]) - Primary Relevant Medications dapagliflozin (Farxiga) 10 MG tablet hydroCHLOROthiazide (HYDRODiuril) 25 MG tablet NIFEdipine CC (Adalat CC) 60 MG 24 hr tablet valsartan (Diovan) 160 MG tablet Other Relevant Orders Renal Function Panel, Plasma CBC W/O Differential Urinalysis with reflex microscopic (Culture NOT Included) Creatinine, Random, Urine Albumin-creatinine ratio, urine, random Protein, Random, Urine with Creatinine Follow Up Nephrology Renal Function Panel, Plasma CBC W/O Differential Urinalysis with reflex microscopic (Culture NOT Included) Creatinine, Random, Urine Albumin-creatinine ratio, urine, random Protein, Random, Urine with Creatinine Follow Up Nephrology Mr. Nguyen is a 69 year old gentleman with history of CKD secondary to atrophic left kidney, DM, HTN and partial nephrectomy of right kidney secondary to RCC who presents to Nephrology clinic forfollow-up. #CKDIII b - Baseline creatinine was 1.3-1.4 secondary to atrophic left kidney, DM, HTN prior to nephrectomy. Incurred SILVESTRE in 05/2022 secondary to partial nephrectomy of right kidney to remove RCC. Suspect new baseline 1.7-2.0. Creatinine was stable at 2.26 in 12/2024. - No significant electrolyte, acid base issues on labs. No overt volume issues on exam. - CT renal mass 08/2024 showing mild enlargement of left upper lobe pulmonary nodules, increased in size and concerning for metastatic disease. Atrophic left kidney. Right kidney s/p partial nephrectomy - Recommend avoidance of nephrotoxins. - Current anti-HTN regimen, will continue - Continue valsartan to 80 mg BID. - Nifedipine 60mg daily - hydrochlorothiazide 25mg daily #Microalbuminuria #Proteinuria - Suspect related to underlying DM and recent nephrectomy. - Urine albumin/creatinine 2106 in 09/2024 < 2944, UPCr 3.1<4.0 - Proteinuria workup previously obtained: negative autoimmune, hematological, infectious workup. 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 Will f/u with urology - Following with Urology and heme/onc - Currently on Ipilimumab/nivolumab, completed 2 cycles with goal to complete 4 prior to repeat imaging. Tolerating side effects well so far. - Immunotherapy know to cause AIN, will continue to monitor renal labs. If Cr/GFR worsens then would consider biopsy to see if steroid responsive #HTN - BP well controlled at home - On nifedipine 60 mg daily, valsartan 80 mg twice daily, added hydrochlorothiazide 25 mg at last visit. Electrolytes WNL - Check RFP at follow up in 4 months - Continue current BP regimen with nifedipine 60mg daily, hydrochlorothiazide 25mg daily and valsartan 80mg BID. #BLE edema -May be related to calcium channel blockers vs. CKD. Improved since initiation of HCTZ #CKD-MBD - PTH 113 in 11/2024, VitD 32.1 in 11/2024. Calcium and phos levels within normal limits. #Nephrolithiasis - Calculus noted on CT abdomen/pelvis in 04/2024 in atrophic left kidney. Patient asymptomatic. - follows with urology #Anemia - Hb 12.4 in 12/2024. At goal > 10 #T2DM - not currently on medications. See back in 4 months Orders Placed This Encounter Procedures Renal Function Panel, Plasma Standing Status: Future Expected Date: 03/13/2025 Expiration Date: 06/14/2026 [facility]] CBC W/O Differential Standing Status: Future Expected Date: 03/13/2025 Expiration Date: 06/14/2026 [facility] [1] Urinalysis with reflex microscopic (Culture NOT Included) Standing Status: Future Expected Date: 03/13/2025 Expiration Date: 06/14/2026 Indicate type of workup:: Non-infectious Workup [facility] [1] Creatinine, Random, Urine Standing Status: Future Expected Date: 03/13/2025 Expiration Date: 06/14/2026 [facility] [1] Albumin-creatinine ratio, urine, random Standing Status: Future Expected Date: 03/13/2025 Expiration Date: 06/14/2026 [facility] [1] Protein, Random, Urine with Creatinine Standing Status: Future Expected Date: 03/13/2025 Expiration Date: 06/14/2026 [facility]: Immediate [1] Renal Function Panel, Plasma Standing Status: Future Expected Date: 03/13/2025 Expiration Date: 06/14/2026 Release to patient in [facility]: Immediate [1] CBC W/O Differential Standing Status: Future Expected Date: 03/13/2025 Expiration Date: 06/14/2026 [facility] [1] Urinalysis with reflex microscopic (Culture NOT Included) Standing Status: Future Expected Date: 03/13/2025 Expiration Date: 06/14/2026 Indicate type of workup:: Non-infectious Workup Release to patient in [facility]: Immediate [1] Creatinine, Random, Urine Standing Status: Future Expected Date: 03/13/2025 Expiration Date: 06/14/2026 [facility] [1] Albumin-creatinine ratio, urine, random Standing Status: Future Expected Date: 03/13/2025 Expiration Date: 06/14/2026 [facility]: Immediate [1] Protein, Random, Urine with Creatinine Standing Status: Future Expected Date: 03/13/2025 Expiration Date: 06/14/2026 [facility]: Immediate [1] Follow Up Nephrology Standing Status: Future Expected Date: 04/10/2025 Expiration Date: 01/10/2026 Referral Priority: Routine Referral Type: Consultation Number of Visits Requested: 1 Follow Up Nephrology Standing Status: Future Expected Date: 04/10/2025 Expiration Date: 01/10/2026 Referral Priority: Routine Referral Type: Consultation Number of Visits Requested: 1 Ashwini Palacios MD Internal Medicine PGY-2 Cosigned by Lila Farris MD at 12/19/2024 3:02 AM EST Associated attestation - Lila Farris MD - 12/19/2024 3:02 AM EST I saw and evaluated the patient. I discussed the case with the resident/fellow and agree with the findings and plan as documented. documented in this encounter Plan of Treatment Upcoming Encounters Date Type Department Care Team (Late st Contact Info) Description 02/02/2025 12:50 PM EST Appointment [facility] [address] [place] [address] 02/09/2025 10:30 AM EST Clinical Support [facility] Multidisciplinary Oncology Clinic [address] [place] [phone] 02/09/2025 11:00 AM EST Office Visit [facility] Multidisciplinary Oncology Clinic [address] [place] [address] Princess Yen MD [address] [place] [address] 02/09/2025 12:00 PM EST Appointment [facility] Infusion Clinic [address] [place] [phone] 04/02/2025 8:00 AM EST Clinical Support [facility] Laboratory Services [address] [place] [address] 04/09/2025 8:40 AM EST Office Visit [facility] Nephrology, Bone & Mineral Metabolism [address], [address] [place] [address] Lila Farris MD [address] [place] [address] Scheduled Orders Name Type Priority Associated Diagnoses Orde r Schedule Renal Function Panel, Plasma Lab Routine Stage 3 chronic kidney disease, unspecified whether stage 3a or 3b CKD (CMS/HCC) Expected: 03/13/2025 (Approximate), Expires: 06/14/2026 CBC W/O Differential Lab Routine Stage 3 chronic kidney disease, unspecified whether stage 3a or 3b CKD (CMS/HCC) Expected: 03/13/2025 (Approximate), Expires: 06/14/2026 Urinalysis with reflex microscopic (Culture NOT Included) Lab Routine Stage 3 chronic kidney disease, unspecified whether stage 3a or 3b CKD (CMS/HCC) Expected: 03/13/2025 (Approximate), Expires: 06/14/2026 Creatinine, Random, Urine Lab Routine Stage 3 chronic kidney disease, unspecified whether stage 3a or 3b CKD ([facility]) Expected: 03/13/2025 (Approximate), Expires: 06/14/2026 Albumin-creatinine ratio, urine, random Lab Routine Stage 3 chronic kidney disease, unspecified whether stage 3a or 3b CKD ([facility]/HCC) Expected: 03/13/2025 (Approximate), Expires: 06/14/2026 Protein, Random, Urine with Creatinine Lab Routine Stage 3 chronic kidney disease, unspecified whether stage 3a or 3b CKD ([facility]/HCC) Expected: 03/13/2025 (Approximate), Expires: 06/14/2026 Renal Function Panel, Plasma Lab Routine Stage 3 chronic kidney disease, unspecified whether stage 3a or 3b CKD ([facility]/HCC) Expected: 03/13/2025 (Approximate), Expires: 06/14/2026 CBC W/O Differential Lab Routine Stage 3 chronic kidney disease, unspecified whether stage 3a or 3b CKD ([facility]) Expected: 03/13/2025 (Approximate), Expires: 06/14/2026 Urinalysis with reflex microscopic (Culture NOT Included) Lab Routine Stage 3 chronic kidney disease, unspecified whether stage 3a or 3b CKD ([facility]) Expected: 03/13/2025 (Approximate), Expires: 06/14/2026 Creatinine, Random, Urine Lab Routine Stage 3 chronic kidney disease, unspecified whether stage 3a or 3b CKD ([facility]) Expected: 03/13/2025 (Approximate), Expires: 06/14/2026 Albumin-creatinine ratio, urine, random Lab Routine Stage 3 chronic kidney disease, unspecified whether stage 3a or 3b CKD ([facility]/HCC) Expected: 03/13/2025 (Approximate), Expires: 06/14/2026 Scheduled Referrals Name Type Priority Associated Diagnoses Orde r Schedule Follow Up Nephrology Outpatient Referral Routine Stage 3 chronic kidney disease, unspecified whether stage 3a or 3b CKD ([facility]CC) Expected: 04/10/2025 (Approximate), Expires: 01/10/2026 Follow Up Nephrology Outpatient Referral Routine Stage 3 chronic kidney disease, unspecified whether stage 3a or 3b CKD ([facility]/HCC) Expected: 04/10/2025 (Approximate), Expires: 01/10/2026 documented as of this encounter Results * Protein, Random, Urine with Creatinine (12/29/2024 8:34 AM EST) Protein, Urine 159 mg/dL 12/29/2024 9:28 AM EST [facility] Creatinine, Urine 56 mg/dL 12/29/2024 9:28 AM EST [facility] Protein/Creatin ine Ratio 2.8 mg/mg Creat 12/29/2024 9:28 AM EST [facility] Urine Urine specimen obtained by clean catch procedure / Unknown Non-blood Collection / Unknown 12/29/2024 8:34 AM EST 12/29/2024 8:58 AM EST us Lila Farris MD LAB URINE ORDERABLES Fi nal Result [facility] [address] [place] [address] documented in this encounter Visit Diagnoses Diagnosis Stage 3 chronic kidney disease, unspecified whether stage 3a or 3b CKD (CMS/HCC)- Primary Hypertension, unspecified type Proteinuria, unspecified type H/O partial nephrectomy Renal cell carcinoma, unspecified laterality Renal cell carcinoma, unspecified laterality- Primary documented in this encounter Additional Health Concerns Assessment Noted Time A fall risk assessment has been complete d for the patient 12/11/2024 8:44 AM EST A Body Mass Index follow-up plan has been documented for the patient 12/19/2024 3:02 AM EST documented as of this encounter Care Teams Satellite Dish Technician Relationship Specialty Start Date End Date Brandi Ramírez APRN [id number] PCP - General 04/26/22 documented as of this encounter
--- OUTSIDE RECORDS SUMMARY | 2024-12-29 09:30 | XMS_ITS | Encounter Summary ---
Author Organization Healthcare Address [address] [place] [address] Care Team Providers Care Field Handyman Name Role Phone Brandi Ramírez APRN Primary Care Provider [phone] Reason for Visit * Reason Comments Follow-up Renal cell carcinoma , unspecified laterality Encounter Details Date Type Department Care Team (Latest Contact Info) Description 12/29/2024 9:30 AM EST Office Visit [facility] Multidisciplinary Oncology Clinic [address] [place] [address] Princess Yen MD [address] [place] [address] Renal cell carcinoma, unspecified laterality (Primary Dx) Social History Tobacco Use Types Packs/Day Years Used Date Smoking Tobacco: Never Passive Smoke Exposure: Past Smokeless Tobacco: Never Alcohol Use Standard Drinks/Week Comments Never 0 (1 standard drink = 0.6 oz pur e alcohol) PHQ-2 Answer Date Recorded Patient Health Questionnaire-2 Score 0 12/29/2024 AUDIT-C Answer Date Recorded Q1: How often [...] drink first t raul in the morning (EYE-REGISTERED SAFETY ENGINEER) to steady your nerves or to get [...] Sign Reading Time Taken Comments Blood Pressure 156/83 12/29/2024 9:30 AM EST Pulse 64 12/29/2024 9:30 AM EST Temperature 36.4 C (97.5 F) 12/29/2024 9:30 AM EST Respiratory Rate 16 12/29/2024 9:30 AM EST Oxygen Saturation 97% 12/29/2024 9:30 AM EST Inhaled Oxygen Concentration - - Weight 117 kg (257 lb 11.5 oz) 12/29/2024 9:30 A M EST Height 182.9 cm (6') 12/29/2024 9:30 AM EST Body Mass Index 34.95 12/29/2024 9:30 AM EST documented in this encounter Functional Status * Over the past 2 weeks, how often have you been bothered by any of the following problems? Question Answer Date of Assessment Author Little interest or pleasure in doing things Not at all 12/29/2024 9:34 AM EST Sandee Herrera Feeling down, depressed, or hopeless Not at all 12/07 9:34 AM EST Sandee Herrera Patient Health Questionnaire-2 Score 0 12/07 9:34 AM EST Sandee Herrera * Question Answer Date of Assessment Author Thoughts that you would be b carlos off or hurting yourself in some way Not at all 12/29/2024 9:34 AM EST Sandee Herrera documented as of this encounter Miscellaneous Notes * Progress Notes - Princess Yen MD - 12/29/2024 9:30 AM EST [facility] Patient Name: Rivera Nguyen Date of : 1955 69 y.o. Referring Physician:No referring provider defined for this encounter. Encounter Date: 12/29/2024 Chief Complaint: Chief Complaint Patient presents with Follow-up Renal cell carcinoma, unspecified laterality Verbal consent was obtained to use ambient listening technology to assist in the documentation of the encounter: yes Interval History: History of Present Illness The patient is a male who presents for evaluation of renal cell cancer. FAMILY HISTORY - Has 9 brothers, 5 of whom have The patient is a 69-year-old male who presents for evaluation of skin rash, blood pressure management, and blood glucose management. He reports the development of five pruritic bumps on his back following his last treatment. He doesnot experience any associated pain. His blood pressure readings have consistently been elevated during his clinic visits, with a recenthome reading of 127/75. His blood glucose level was recorded at 109 this morning. He is currently on Farxiga for renal management and monitors his blood glucose levels at home. He is uncertain about his A1c levels. Current Treatment Regimen: Ipi + nivo Oncology History: Oncology History Overview Note History of left atrophic kidney - followed by setter molding and coremaking machines - 9 cm right renal mass s/p [...] 3 mg/kg = 340 mg, Intravenous, Once, 2 of 4 cycles Administration: 340 mg (11/17/2024), 340 mg (12/08/2024) ipilimumab (Yervoy) 115 mg in sodium chloride 0.9 % 50 mL IVPB, 1 mg/kg = 115 mg, Intravenous, Once, 2 of 4 cycles Administration: 115 mg (11/17/2024), 115 mg (12/08/2024) 02/09/2025 - Chemotherapy nivolumab (Opdivo) 480 mg in sodium chloride 0.9 % 100 mL IVPB, 480 mg, Intravenous, Once, 0 of 24 cycles Past Medical, Surgical, Family and Social History: Past Medical History[1] Surgical History[2] Family History[3] Social History[4] Allergies: Patient has no known allergies. Medications: Current Medications[5] Review of Systems: A comprehensive 14 point review of systems was performed, noted to be negative with the pertinent positives documented in the HPI section of this note. Vital Signs: Visit Vitals BP (!) 156/83 Pulse 64 Temp 36.4 ??C (97.5 ??F) Resp 16 Physical Exam perfromance status - 0 General Appearance: well appearing , NAD HEENT: no cervical lymphadenopathy Respiratory: clear, AEBE Cardiovascular: Normal, no rubs or murmurs Gastrointestinal: soft, non tender Back, Musculoskeletal: Redness and tiny bumps noted on the back Skin: Redness and tiny bumps noted on the back Neurological: no focal neurologic deficit Results Labs - White blood cell count: Normal - Kidney function tests: Stable - Thyroid function tests: Normal Labs - Kidney function test: 2.17 - Blood glucose test: 109 Labs, Imaging, Pathology: Lab Results Component Value Date WBC 10.00 12/29/2024 RBC 4.35 (L) 12/29/2024 HGB 12.4 (L) 12/29/2024 HCT 39.2 (L) 12/29/2024 MCV 90 12/29/2024 MCHC 31.6 12/29/2024 RDW 14.0 12/29/2024 PLT 280 12/29/2024 MPV 9.4 12/29/2024 Lab Results Component Value Date BUN 32 (H) 12/29/2024 CL 109 (H) 12/29/2024 NA 141 12/29/2024 K 4.7 12/29/2024 TP 7.3 12/29/2024 AST 14 12/29/2024 ALT 12 12/29/2024 Blood pressure (!) 156/83, pulse 64, temperature 36.4 ??C (97.5 ??F), resp. rate 16, height 1.829 m(6'), weight 117 kg (257 lb 11.5 oz), SpO2 97%. Imaging - nothing new Performance Status: 0 [...] best of my knowledge and clinical judgment. Skin rash - Likely attributable to immunotherapy, a known side effect - Prescription for steroid cream to alleviate inflammation and itching Follow-up - Follow up in 3 weeks Thank you for the consult. I have [...] further clarification is needed. Princess Troy MD Flat Sheet Maker, Medical Oncology [facility] [1] Past Medical History: Diagnosis Date Cancer (CMS/HCC) Diabetic acidosis, type II FSBS 128-145 HTN (hypertension) Seasonal allergies [2] Past Surgical History: Procedure Laterality Date KNEE SURGERY RENAL BIOPSY [3] Family History Problem Relation Name Age of Onset Diabetes Brother Cancer Brother [4] Social History Tobacco Use Smoking status: [...] extremity edema). (Patient not taking: Reported on 12/29/2024), Disp: 30 tablet, Rfl: 11 prochlorperazine (Compazine) 10 MG tablet, Take 1 tablet by mouth every 6 hours as needed for nausea or vomiting. (Patient not taking: Reported on 12/29/2024), Disp: 30 tablet, Rfl: 5 * Progress Notes - Paolo Wheeler, PharmD - 12/29/2024 9:30 AM EST Pharmacy Hematology/Oncology Treatment Note Rivera Nguyen is a 69 y.o. 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 Cancer Staging No matching staging information was found for the patient. . Study Patient: no Treatment Plan reviewed for Ipilimumab/Nivolumab every 21 days. [x] Follow-Up Clinical Review for Cycle 3 [] Follow-Up Clinical Review for Continuous Oral [...] He continues to follow with nephrology forCKD/proteinuria. 12/29/24: Mr. Nguyen is overall tolerating treatment well. He is expressing a mild rash, HC cream sent. Will continue to monitor. Labs reviewed and appropriate for treatment today. Today's Wt: Wt Readings from Last 1 Encounters: 12/29/24 117 kg (257 lb 11.5 oz) Dosing Wt: 116 kg Dosing Ht: 175.3 cm DosingBSA: 2.38 m2 Recent Labs: Lab Results Component Value Date WBC 10.00 12/29/2024 HGB 12.4 (L) 12/29/2024 HCT 39.2 (L) 12/29/2024 MCV 90 12/29/2024 PLT 280 12/29/2024 Lab Results Component Value Date GLUCOSE 105 (H) 12/29/2024 CALCIUM 9.2 12/29/2024 NA 141 12/29/2024 K 4.7 12/29/2024 CO2 22 12/29/2024 CL 109 (H) 12/29/2024 BUN 32 (H) 12/29/2024 CREATININE 2.17 (H) 12/29/2024 Lab Results Component Value Date ALT 12 12/29/2024 AST 14 12/29/2024 ALKPHOS 72 12/29/2024 BILITOT 0.2 12/29/2024 Lab Results Component Value Date NEUTROABS 6.16 (H) 12/29/2024 Lab Results Component Value Date MG 2.2 06/22/2023 Lab Results Component Value Date TSH 1.31 12/08/2024 No results found for: FREET4 Lab Results Component Value Date URINEPRO 100 (A) 12/01/2024 Vitals: Visit Vitals BP (!) 156/83 Pulse 64 Temp 36.4 ??C (97.5 ??F) Resp 16 Other Relevant Monitoring: Savanah 09/07: PBRM1 mut, VHL V87fs mut, TMB low, VANESSA Treatment/Therapy Plan: Ipilimumab 1 mg/kg (115 mg) IV D1 Nivolumab 3mg/kg (340 mg) IV D1 Every 21 days x 4 cycles Followed by Nivolumab maintenance 3 mg/kg IV D1 Every 21 days [x] No dose adjustments made Current Treatment Plan History: Ipi/nivo C1: 11/17/24 C2: 12/08/24 C3: 12/29/24 Prior Treatment History: 05/2022: R partial nephrectomy Plan: Patient will return to clinic in 3 weeks. Will follow-up at that time. Pharmacist Attestation: Paolo Wheeler PharmD, [facility] Hematology/Oncology Clinical Ramp Agent documented in this encounter Plan of Treatment Upcoming Encounters Date Type Department Care Team (Late st Contact Info) Description 02/02/2025 12:50 PM EST Appointment [facility] [address] [place] [address] 02/09/2025 10:30 AM EST Clinical Support [facility] [address] [place] [id number] 02/09/2025 11:00 AM EST Office Visit [facility] [address] [place] [address] Princess Yen MD [address] [place] [id number] 02/09/2025 12:00 PM EST Appointment [facility] [address] [place] [address] 04/02/2025 8:00 AM EST Clinical Support [facility] [address] [place] [address] 04/09/2025 8:40 AM EST Office Visit [facility] [address], [address] [place] [address] Lila Farris MD [address] [place] [address] Scheduled Orders Name Type Priority Associated Diagnoses Orde r Schedule CBC and differential Lab Routine Renal cell carcinoma, unspecified laterality Expected: 02/09/2025, Expires: 02/09/2026 Comprehensive metabolic panel Lab Routine Renal cell carcinoma, unspecified laterality Expected: 02/09/2025, Expires: 02/09/2026 TSH reflex FT4 Lab Routine Renal cell carcinoma, unspecified laterality Expected: 02/09/2025, Expires: 02/09/2026 documented as of this encounter Visit Diagnoses Diagnosis Renal cell carcinoma, unspecified laterality- Primary Renal cell carcinoma, unspecified laterality- Primary documented in this encounter Additional Health Concerns Assessment Noted Time A fall risk assessment has been complete d for the patient 12/29/2024 10:43 AM EST A Body Mass Index follow-up plan has been documented for the patient 12/29/2024 1:14 PM EST documented as of this encounter Care Teams Field Handyman Relationship Specialty Start Date End Date Brandi Ramírez APRN [id number] PCP - General 04/26/22 documented as of this encounter
--- OUTSIDE RECORDS SUMMARY | 2024-12-29 10:42 | XMS_ITS | Encounter Summary ---
Author Organization [facility] Address [address] [id number] Care Team Providers Care Aircraft Instrument Mechanic Name Role Phone Brandi Ramírez APRN Primary Care Provider [phone] Reason for Visit * Episode Based Medications (Routine) - Closed Specialty Diagnoses / Procedures Referred By Apolinar t Referred To Contact Diagnoses Renal cell carcinoma, unspecified laterality Procedures Nivolumab / Ipilimumab Every 21 Days Hari Nunes MD [address] [address] Phone: tel: fax: Hari Nunes MD [address] [address] Phone: tel: fax: Referral ID Status Reason Start Date Expiration Date Visits Re quested Visits Authorized [id number] Closed 11/17/2024 05/19/2026 1 4 Encounter Details Date Type Department Care Team (Latest Contact Info) Description 12/29/2024 10:42 AM EST - 12/29/2024 11:59 PM [facility] Hospital Encounter [facility] [address] [place] [address] Renal cell carcinoma, unspecified laterality (Primary Dx) [...] drink first t raul in the morning (EYE-LINUX SECURITY ADMINISTRATOR) to steady your nerves or to [...] Sign Reading Time Taken Comments Blood Pressure 159/77 12/29/2024 10:43 AM EST Pulse 64 12/29/2024 10:43 AM EST Temperature 36.4 C (97.5 F) 12/29/2024 10:43 AM EST Respiratory Rate 16 12/29/2024 10:43 AM EST Oxygen Saturation 97% 12/29/2024 10:43 AM EST Inhaled Oxygen Concentration - - Weight 117 kg (257 lb 11.5 oz) 12/29/2024 10:43 AM EST Height 182.9 cm (6') 12/29/2024 10:43 AM EST Body Mass Index 34.95 12/29/2024 10:43 AM EST documented in this encounter Functional Status * Over the past 2 weeks, how often have you been bothered by any of the following problems? Question Answer Date of Assessment Author Little interest or pleasure in doing things Not at all 12/29/2024 9:34 AM Sandee Velazquez Feeling down, depressed, or hopeless Not at all 12/07 9:34 AM Sandee Velazquez Patient Health Questionnaire-2 Score 0 12/07 9:34 AM Sandee Velazquez * Question Answer Date of Assessment Author Thoughts that you would be b carlos off or hurting yourself in some way Not at all 12/29/2024 9:34 AM Sandee Velazquez documented as of this encounter Medications at Time of Discharge dapagliflozin (Farxiga) 10 MG tablet Take 1 tablet by mouth daily. 30 tablet 11 12/11/2024 furosemide (Lasix) 40 MG tablet Take 1 tablet by mouth daily as needed (lower extremity edema). 30 tablet 11 10/08/2024 hydroCHLOROthiazi de (HYDRODiuril) 25 MG tablet Take 1 tablet by mouth daily. 30 tablet 11 12/11/2024 hydrocortisone 2.5 % cream Apply to rash up to twice daily continuously until rash resolves some and as needed 28 g 1 12/29/2024 NIFEdipine CC (Adalat CC) 60 MG 24 hr tablet Take 1 tablet by mouth daily. Do not crush, chew, or split. 90 tablet 3 12/11/2024 prochlorperazine (Compazine) 10 MG tabletIndications :Renal cell carcinoma, unspecified laterality Take 1 tablet by mouth every 6 hours as needed for nausea or vomiting. 30 tablet 5 10/27/2024 tiZANidine (Zanaflex) 4 MG tablet Take 1 tablet by mouth at night as needed for muscle spasms. PRN 30 tablet 1 10/08/2024 valsartan (Diovan) 160 MG tablet Take 0.5 tablets by mouth 2 times a day. 180 tablet 3 12/11/2024 documented as of this encounter Plan of Treatment Upcoming Encounters Date Type Department Care Team (Late st Contact Info) Description 02/02/2025 12:50 PM EST Appointment [facility] [address] [place] [address] 02/09/2025 10:30 AM EST Clinical Support [facility] Multidisciplinary Oncology Clinic [address] [place] [address] 02/09/2025 11:00 AM EST Office Visit [facility] [address] [place] [address] Princess Yen MD [address] [place] [address] 02/09/2025 12:00 PM EST Appointment [facility] [address] [place] [address] 04/02/2025 8:00 AM EST Clinical Support [facility] [address] [place] [address] 04/09/2025 8:40 AM EST Office Visit [facility] Nephrology, Bone & Mineral Metabolism [address] [place] [address] Lila Farris MD [address] [place] [address] documented as of this encounter [...] Filter Required. Use 0.2 micron filter., On Sun12/29/24 at 1215, For 1 dose, Dilute in NS (Final concentration 1-2mg/mL)Indications:Renal cell carcinoma, unspecified laterality New Bag 12/29/2024 12:44 PM EST 115 mg 196 mL/hr nivolumab (Opdivo) 340 mg in sodium chloride 0.9 % 100 mL IVPB 340 mg (rounded from 348 mg = 3 mg/kg 116 kg Treatment plan Recorded weight), Intravenous, at 328 mL/hr, Administer over 30 Minutes, Once, Filter Required. Use 0.2 micron filter., On 12/29/24 at 1145, For 1 dose, NS 100 mLIndications:Renal cell carcinoma, unspecified laterality New Bag 12/29/2024 12:07 PM EST 340 mg 328 mL/hr documented in this encounter Additional Health Concerns Assessment Noted Time A fall risk assessment has been complete d for the patient 12/29/2024 10:43 AM EST A Body Mass Index follow-up plan has been documented for the patient 12/29/2024 1:14 PM EST documented as of this encounter Care Teams Aircraft Instrument Mechanic Relationship Specialty Start Date End Date Brandi Ramírez APRN [id number] PCP - General 04/26/22 documented as of this encounter
--- OUTSIDE RECORDS SUMMARY | 2025-01-19 09:00 | XMS_ITS | Encounter Summary ---
Author Organization Healthcare Address [address] [place] [address] Care Team Providers Care Craft Demonstrator Name Role Phone Brandi Ramírez APRN Primary Care Provider [phone] Encounter Details Date Type Department Care Team (Latest Contact Info) Description 01/19/2025 9:00 AM EST Clinical Support [facility] Multidisciplinary Oncology Clinic [address] [place] [address] Renal cell carcinoma, unspecified laterality Social History Tobacco Use Types Packs/Day Years Used Date Smoking Tobacco: Never Passive Smoke Exposure: Past Smokeless Tobacco: Never Alcohol Use Standard Drinks/Week Comments Never 0 (1 standard drink = 0.6 oz pur e alcohol) PHQ-2 Answer Date Recorded Patient Health Questionnaire-2 Score 0 01/19/2025 AUDIT-C Answer Date Recorded Q1: How often [...] drink first t raul in the morning (EYE-PICKER TENDER HELPER) to steady your nerves or to get [...] on file documented as of this encounter Miscellaneous Notes * Clinician Note - Tori Hatfield, RN - 01/19/2025 9:00 AM EST Labs drawn documented in this encounter Plan of Treatment Upcoming Encounters Date Type Department Care Team (Late st Contact Info) Description 02/02/2025 12:50 PM EST Appointment [facility] CT [address], [address] [place] [address] 02/09/2025 10:30 AM EST Clinical Support [facility] Multidisciplinary Oncology Clinic [address] [place] [address] 02/09/2025 11:00 AM EST Office Visit [facility] Multidisciplinary Oncology Clinic [address] [place] [address] Princess Yen MD [address] [place] [id number] 02/09/2025 12:00 PM EST Appointment [facility] Infusion Clinic [address] [place] [address] 04/02/2025 8:00 AM EST Clinical Support [facility] Laboratory Services [address], 1st [place] [address] 04/09/2025 8:40 AM EST Office Visit [facility] Nephrology, Bone & Mineral Metabolism [address], [address] [place] [address] Lila Fraris MD [address] [facility] [address] [place] [address] documented as of this encounter Procedures Procedure Name Priority Date/Time Associated Diagnosis Comments CBC WITH AUTO DIFFERENTIAL Routine 01/19/2025 9:13 AM EST Renal cell carcinoma, unspecified laterality COMPREHENSIVE METABOLIC PANEL, PLASMA Routine 01/19/2025 9:13 AM EST Renal cell carcinoma, unspecified laterality documented in this encounter Results * (ABNORMAL) CBC and differential (01/19/2025 9:13 AM EST) WBC Count 9.43 3.70 - 10.30 10*3/uL LAB HEMATOLOGY METHOD 01/19/2025 9:45 AM EST [facility] RBC Count 4.38(L) 4.60 - 6.10 10*6/uL LAB HEMATOLOGY METHOD 01/19/2025 9:45 AM EST [facility] HGB 12.3(L) 13.7 - 17.5 g/dL LAB HEMATOLOGY METHOD 01/19/2025 9:45 AM EST [facility] HCT 39.9(L) 40.0 - 51.0 % LAB HEMATOLOGY METHOD 01/19/2025 9:45 AM EST [facility] Platelet Count 283 155 - 369 10*3/uL LAB HEMATOLOGY METHOD 01/19/2025 9:45 AM EST [facility] MCV 91 79 - 98 fL LAB HEMATOLOGY METHOD 01/19/2025 9:45 AM EST [facility] MCH 28.1 26.0 - 32.0 pg LAB HEMATOLOGY METHOD 01/19/2025 9:45 AM EST [facility] MCHC 30.8 30.7 - 35.5 g/dL LAB HEMATOLOGY METHOD 01/19/2025 9:45 AM EST [facility] RDW 14.3 11.5 - 14.5 % LAB HEMATOLOGY METHOD 01/19/2025 9:45 AM EST [facility] MPV 9.3 8.8 - 12.5 fL LAB HEMATOLOGY METHOD 01/19/2025 9:45 AM EST [facility] nRBC 0.0 <=0.0 per 100 WBCs LAB HEMATOLOGY METHOD 01/19/2025 9:45 AM EST [facility] Differential Type Automated LAB HEMATOLOGY METHOD 01/19/2025 9:45 AM EST [facility] Neutrophils % 57 % LAB HEMATOLOGY METHOD 01/19/2025 9:45 AM EST [facility] Lymphocytes % 25 % LAB HEMATOLOGY METHOD 01/19/2025 9:45 AM EST [facility] Monocytes % 12 % LAB HEMATOLOGY METHOD 01/19/2025 9:45 AM EST [facility] Eosinophils % 4 % LAB HEMATOLOGY METHOD 01/19/2025 9:45 AM EST [facility] Basophils % 1 % LAB HEMATOLOGY METHOD 01/19/2025 9:45 AM EST [facility] Immature Granulocytes % 1 % LAB HEMATOLOGY METHOD 01/19/2025 9:45 AM EST [facility] Neutrophils Absolute 5.54 1.60 - 6.10 10*3/uL LAB HEMATOLOGY METHOD 01/19/2025 9:45 AM EST [facility] Lymphocytes Absolute 2.31 1.20 - 3.90 10*3/uL LAB HEMATOLOGY METHOD 01/19/2025 9:45 AM EST [facility] Monocytes Absolute 1.09(H) 0.30 - 0.90 10*3/uL LAB HEMATOLOGY METHOD 01/19/2025 9:45 AM EST [facility] Eosinophils Absolute 0.37 0.00 - 0.50 10*3/uL LAB HEMATOLOGY METHOD 01/19/2025 9:45 AM [facility] Basophils Absolute 0.06 0.00 - 0.10 10*3/uL LAB HEMATOLOGY METHOD 01/19/2025 9:45 AM [facility] Immature Granulocytes Absolute 0.06 0.00 - 0.06 10*3/uL LAB HEMATOLOGY METHOD 01/19/2025 9:45 AM EST [facility] Blood Venous blood specimen / Unknown Venipuncture / Unknown 01/19/2025 9:13 AM EST 01/19/2025 9:42 AM EST Narrative [facility] - 01/19/2025 9:45 AM EST Therapeutic decision making should be based on absolute values, rather than percentages. us Princess Troy MD LAB BLOOD ORDERABLES Fi nal Result [facility] [address] [place] [address] * (ABNORMAL) Comprehensive metabolic panel (01/19/2025 9:13 AM EST) Glucose, Plasma 116(H) 74 - 99 mg/dL 01/19/2025 10:34 AM [facility] BUN, Plasma 27(H) 8 - 23 mg/dL 01/19/2025 10:34 AM [facility] Creatinine, Plasma 2.05(H) 0.70 - 1.20 mg/dL 01/19/2025 10:34 AM [facility] BUN/Creatinine Ratio 13 01/19/2025 10:34 AM [facility] Sodium, Plasma 139 136 - 145 mmol/L 01/19/2025 10:34 AM [facility] Potassium, Plasma 4.4 3.6 - 4.9 mmol/L 01/19/2025 10:34 AM [facility] Chloride, Plasma 106 97 - 107 mmol/L 01/19/2025 10:34 AM [facility] CO2, Plasma 22 22 - 29 mmol/L 01/19/2025 10:34 AM [facility] Anion Gap 11 6 - 16 mmol/L 01/19/2025 10:34 AM [facility] Total Calcium, Plasma 8.4(L) 8.9 - 10.2 mg/dL 01/19/2025 10:34 AM [facility] Total Protein 6.5 6.3 - 7.9 g/dL 01/19/2025 10:34 AM [facility] Albumin, Plasma 3.6 3.5 - 5.2 g/dL 01/19/2025 10:34 AM [facility] AST, Plasma 19 10 - 50 U/L 01/19/2025 10:34 AM [facility] ALT, Plasma 11 10 - 50 U/L 01/19/2025 10:34 AM [facility] Alkaline Phosphatase, Plasma 59 40 - 115 U/L 01/19/2025 10:34 AM [facility] Total Bilirubin, Plasma <0.2(L) 0.2 - 1.1 mg/dL 01/19/2025 10:34 AM [facility] eGFRcr 34.4 mL/min/1.7 3m*2 01/19/2025 10:34 AM [facility] Comment:Reported eGFRcr in m L/min/1.73m2 is based the CKD-EPI 2020 equation that does not use a race coefficient. Blood Venous blood specimen / Unknown Venipuncture / Unknown 01/19/2025 9:13 AM EST 01/19/2025 9:57 AM EST us Princess Tory MD LAB BLOOD ORDERABLES Fi nal Result Performing Organization Address City/State/[facility] Co de Phone Number [facility] [address] [place] [address] documented in this encounter Visit Diagnoses Diagnosis Renal cell carcinoma, unspecified laterality Renal cell carcinoma, unspecified laterality- Primary documented in this encounter Additional Health Concerns Assessment Noted Time A fall risk assessment has been complete d for the patient 01/19/2025 11:49 AM EST A Body Mass Index follow-up plan has been documented for the patient 12/29/2024 1:14 PM EST documented as of this encounter Care Teams Craft Demonstrator Relationship Specialty Start Date End Date Brandi Ramírez APRN [phone] PCP - General 04/26/22 documented as of this encounter
--- OUTSIDE RECORDS SUMMARY | 2025-01-19 09:30 | XMS_ITS | Encounter Summary ---
Author Organization [facility] Address [address] [id number] Care Team Providers Care Psychotherapist Social Worker Name Role Phone Brandi Ramírez KATE Primary Care Provider Reason for Visit * Reason Comments Follow-up Kidney Cancer Encounter Details Date Type Department Care Team ([facility] st Contact Info) Description 01/19/2025 9:30 AM EST Office Visit [facility] Multidisciplinary Oncology Clinic [address] [place] [address] Meka Rowe APRN, [facility] [address] [facility] [address] [place] [address] Renal cell carcinoma, unspecified laterality (Primary Dx) [...] drink first t raul in the morning (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-WELL CONTROL INSTRUCTOR) to steady your nerves or to get [...] Sign Reading Time Taken Comments Blood Pressure 181/77 01/19/2025 9:24 AM EST Pulse 73 01/19/2025 9:24 AM EST Temperature 36.4 C (97.5 F) 01/19/2025 9:24 AM EST Respiratory Rate 18 01/19/2025 9:24 AM EST Oxygen Saturation 96% 01/19/2025 9:24 AM EST Inhaled Oxygen Concentration - - Weight 117 kg (257 lb 11.5 oz) 01/19/2025 9:24 A M EST Height 182.9 cm (6') 01/19/2025 9:24 AM EST Body Mass Index 34.95 01/19/2025 9:24 AM EST documented in this encounter Functional Status * Over the past 2 weeks, how often have you been bothered by any of the following problems? Question Answer Date of Assessment Author Little interest or pleasure in doing things Not at all 01/19/2025 9:26 AM EST Dory Mccray Feeling down, depressed, or hopeless Not at all 01/19/2025 9:26 AM EST Dory Mccray Patient Health Questionnaire -2 Score 0 01/19/2025 9:26 AM EST Dory Mccray * Question Answer Date of Assessment Author Thoughts that you would be b carlos off or hurting yourself in some way Not at all 01/19/2025 9:26 AM EST Dory Mccray documented as of this encounter Miscellaneous Notes * Progress Notes - Meka Rowe, CHIEF MEDIA OFFICER, DNP - 01/19/2025 9:30 AM EST Medical Oncology Clinic Note Patient Name: Rivera Nguyen Date of : 1955 69 y.o. Referring Physician:No referring provider defined for this encounter. Encounter Date: 01/19/2025 Interval History: Patients presents to clinic for a toxicology check and continuation of treatment with C4D1 Nivolumab/Ipilimumab. Patient is doing well over all. He does complain of chronic left sciatica which he takes a nightly muscle relaxer and tylenol. Has a small amount of numbness and tingling in BLE. Denies fever, body aches, chills, chest pain, SOA, abd pain, diarrhea, constipation, nausea, or vomiting. He is eating well. Previously had a rash on his back and upper torso which has resolved with topical steroid cream. 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 Oncology History Overview Note History of left atrophic kidney - followed by air filler - 9 cm right renal mass s/p [...] 3 mg/kg = 340 mg, Intravenous, Once, 3 of 4 cycles Administration: 340 mg (11/17/2024), 340 mg (12/08/2024), 340 mg (12/29/2024) ipilimumab (Yervoy) 115 mg in sodium chloride 0.9 % 50 mL IVPB, 1 mg/kg = 115 mg, Intravenous, Once, 3 of 4 cycles Administration: 115 mg (11/17/2024), 115 mg (12/08/2024), 115 mg (12/29/2024) 02/09/2025 - Chemotherapy nivolumab (Opdivo) 480 mg in sodium chloride 0.9 % 100 mL IVPB, 480 mg, Intravenous, Once, 0 of 24 cycles Past Medical, Surgical, Family and Social History: Reviewed, and unchanged from most recent clinic visit of 12/29/24, or updated as indicated. Allergies and Adverse Drug Reactions: Patient has no known allergies. Medications: Reviewed Review of Systems: 14 pt review of systems performed and negative except as noted in HPI. Physical Exam: Temp: [36.4 ??C (97.5 ??F)] 36.4 ??C (97.5 ??F) Heart Rate: [73] 73 Resp: [18] 18 BP: (181)/(77) 181/77 SpO2: [96 %] 96 % ECO General: Sitting/resting comfortably in chair, NAD HEENT: NCAT, PERRLA/EOMI, anicteric; no oral lesions; multiple missing lower teeth Neck: Supple, no lymphadenopathy or JVD Heart: RRR, no MGR Lungs: CTAB; no rales, rhonchi or wheezes; RA Abdomen: Soft, NTND, + BS Extremities: No edema, distal pulses intact Musculoskeletal: No focal tenderness or deformity Skin: No visible rashes or lesions Neuro: Grossly nonfocal; no localizing deficits of strength, sensation, or mentation Psychiatric: Normal mood and thought content Labs, Imaging, Pathology: CBC WBC 9.43 Hb 12.3 (L) Plt 283 Hct 39.9 (L) ANC 5.54 INR Lab Results Component Value Date INR 1.0 09/25/2024 , PTT No results found for: PTT BMP Na 139 Cl 106 BUN 27 (H) Glu 116 (H) K 4.4 Co2 22 Cr 2.05 (H) EGFR 34.4 Ca 8.4 (L) [place] ?? Mg Lab Results Component Value Date MG 2.2 06/22/2023 , Phos Lab Results Component Value Date PHOS 3.4 12/01/2024 Lactate Lab Results Component Value Date LACTATE 2.1 (H) 05/23/2022 LFTs AST 19 AlkPhos 59 T Prot 6.5 ALT 11 T Bili <0.2 (L) Alb ?? D.Bili ?? 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 Surveillance imaging demonstrated multiple perinephric nodules concerning for recurrence. Patientpresents for image guided biopsy of a perinephric nodule. TECHNIQUE: Landscaper: Rasheeda Medeiros M.D. Secondary Manager Of Housekeeping: None Nurse: Mary Reyes Technologist: Rosanna Castro Rad Dose (DLP): 1507 mGy-cm Medications: IV conscious sedation with continuous physiologic monitoring provided by a qualified healthcare professional using Versed 1 mg IV and Fentanyl 50 mcg IV. 1% Lidocaine SQ. Antibiotics: None. Duration of Conscious Sedation: Time out: 0808 hours close out: 0838 hours Procedure: After discussion of risks and benefits, informed written consent was obtained. Appropriate time outwas performed to confirm patient identity and planned procedure and side. Strict hand hygiene protocol was observed. All personnel in the room were attired in surgical hat and mask. The operators were in surgical hat, mask, sterile gloves, and sterile gowns. The site was prepped with 2% chlorhexidine for cutaneous antisepsis followed by sterile barrier draping. The patient was placed prone on the CT table and initial scanning carried out. The skin overlying the planned tract was prepped and draped, and local anesthetic administered. The inferiormost right perinephric nodule was accessed under CT guidance with a 17-gauge coaxial needle and position confirmed. Via the coaxial needle 12 cores were taken with an 18-gauge biopsy device. Once sampling was felt sufficient the needle was removed as Gelfoam was instilled along the biopsy tract. Post scanning revealed expected postprocedural changes with no evidence of acute complication. A sterile dressing was applied to the puncture site. The patient tolerated the procedure well, and was transferred to the recovery in good condition. Specimens handed over to pathology team. COMPARISON: CT renal mass protocol 08/20/2024 FINDINGS: Preprocedure limited CT of the abdomen demonstrated postsurgical changes of partial right nephrectomy with multiple anterior and posterior perinephric nodules, with the nodule chosen for biopsy measuring approximately 1.5 cm in diameter. Post procedure limited CT of the abdomen demonstrated expected postprocedural changes with no evidence of acute complications. COMPLICATION: No. - Impression - Successful CT-guided biopsy of a right perinephric nodule, as described above. PLAN: -Standard postprocedural monitoring while in recovery -Patient will follow-up with ordering provider for biopsy results CRITICAL RESULT: No. COMMUNICATION: Per this written report. Drafted by Rasheeda Medeiros MD on 10/03/2024 9:26 AM Final report signed by Rasheeda Medeiros MD on 10/03/2024 9:31 AM No results found for this or any previous visit. Assessment and Plan Rivera Nguyen is a 69 y.o. male with metastatic RCC who presents to clinic for a toxicology checkand continuation of treatment with C4D1 Nivolumab/Ipilimumab. #Recurrent metastatic RCC- oligometastatic #History of atrophic left kidney - Oncologist: Dr. Princess Troy - Regimen: Nivo/Ipi every 21 days - Due for C4D1 -9 cm right renal mass s/p right partial nephrectomy on 05/23/22 (Path pT2a, ccRCC, G3). did not have neoadjuvant treatment - imaging 09/21/2023 which shows a subcentimeter lung nodule and subcentimeter nodular appearance around the partial nephrectomy bed. -08/20/2024, the lung nodule was found to have enlarged to 8mm with enlargement of perinephric nodules. - 09/06/24- biopsy of perinephric soft tissue nodule - residual clear cell RCC - scans planned for after C4: 02/02/25 #CKD - baseline creatinine 2.25 - current creatinine 2.05 - avoid nephrotoxic medications; renally dose medications. - follows with Nephrology - currently on Farxigo and Valsartan Hypertension Nephrolithiasis T2DM- not on any medications Skin rash - Likely attributable to immunotherapy, a known side effect - Prescription for steroid cream to alleviate inflammation and itching Plan - Plans for 4 cycles of Nivo/Ipi then Nivo maintenance - Labs & PS reviewed - Proceed with C4D1 Nivo/Ipi - Will monitor for tx related complications - scans planned for after C4 02/02/25 - f/u with Dr. Troy 02/09/25 with infusion slot 45 minutes was spent on this encounter; including preparing to see the patient, which involved review/interpretation of diagnostics and reports; obtaining and/or reviewing separately obtained history; performing appropriate physical exam; ordering/scheduling medications, tests or procedures; communicating findings and counseling/educating the patient, family and/or caregiver; documentation in EMR; and care coordination. The selection, dosing and administration of anti-cancer agents and the management of associated toxicities requires complex medical decision making and intensive monitoring for toxicity. Modifications of drug dose and schedule as well as the initiation of supportive care interventions are often necessary because of expected toxicities. This varies individually based on patient tolerability, priortreatments and comorbidities/risk status. Monitoring typically entails labs, imaging and/or other diagnostics, utilizing a healthcare delivery team experienced in the use of anticancer agents and themanagement of associated toxicities in patients with cancer. Attending physician previously developed plan of care, which I discussed with the patient, whom I saw independently. The patient verbalized understanding and agrees with plan. All questions answered to their satisfaction. Encouraged to call should other questions/concerns arise. Meka Rowe APRN, DNP Division of Medical Oncology * Progress Notes - Trina Healy, PharmD - 01/19/2025 9:30 AM EST Pharmacy Hematology/Oncology Treatment Note Rivera Nguyen is a 69 y.o. 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 Cancer Staging No matching staging information was found for the patient. . Study Patient: no Treatment Plan reviewed for Ipilimumab/Nivolumab every 21 days. [x] Follow-Up Clinical Review for Cycle 4 [] Follow-Up Clinical Review for Continuous Oral [...] Wt: Wt Readings from Last 1 Encounters: 01/19/25 117 kg (257 lb 11.5 oz) Dosing Wt: 116 kg Dosing Ht: 175.3 cm DosingBSA: 2.29 m2 Recent Labs: Lab Results Component Value Date WBC 9.43 01/19/2025 HGB 12.3 (L) 01/19/2025 HCT 39.9 (L) 01/19/2025 MCV 91 01/19/2025 PLT 283 01/19/2025 Lab Results Component Value Date GLUCOSE 116 (H) 01/19/2025 CALCIUM 8.4 (L) 01/19/2025 NA 139 01/19/2025 K 4.4 01/19/2025 CO2 22 01/19/2025 CL 106 01/19/2025 BUN 27 (H) 01/19/2025 CREATININE 2.05 (H) 01/19/2025 Lab Results Component Value Date ALT 11 01/19/2025 AST 19 01/19/2025 ALKPHOS 59 01/19/2025 BILITOT <0.2 (L) 01/19/2025 Lab Results Component Value Date NEUTROABS 5.54 01/19/2025 Lab Results Component Value Date MG 2.2 06/22/2023 Lab Results Component Value Date TSH 1.31 12/08/2024 No results found for: FREET4 Lab Results Component Value Date URINEPRO 100 (A) 12/01/2024 Vitals: Visit Vitals BP (!) 181/77 Pulse 73 Temp 36.4 ??C (97.5 ??F) Resp 18 Other Relevant Monitoring: Savanah 09/07: PBRM1 mut, VHL V87fs mut, TMB low, VANESSA Treatment/Therapy Plan: Ipilimumab 1 mg/kg (115 mg) IV D1 Nivolumab 3mg/kg (340 mg) IV D1 Every 21 days x 4 cycles Followed by Nivolumab maintenance 3 mg/kg IV D1 Every 21 days [x] No dose adjustments made Current Treatment Plan History: Ipi/nivo C1: 11/17/24 C2: 12/08/24 C3: 12/29/24 C4: 01/19/25 Prior Treatment History: 05/2022: R partial nephrectomy Plan: Patient will return to clinic in 3 weeks. Will follow-up at that time. Pharmacist Attestation: Trina Healy, KirkD, OP Hematology/Oncology Clinical Pharmacist documented in this encounter Plan of Treatment Upcoming Encounters Date Type Department Care Team (Late st Contact Info) Description 02/02/2025 12:50 PM EST Appointment [facility] CT [address] [place] [address] 02/09/2025 10:30 AM EST Clinical Support [facility] Multidisciplinary Oncology Clinic [address] [place] [address] 02/09/2025 11:00 AM EST Office Visit [facility] Multidisciplinary Oncology Clinic [address] [place] [phone] Princess Yen MD [address] [place] [address] 02/09/2025 12:00 PM EST Appointment [facility] Infusion Clinic [address] [place] [address] 04/02/2025 8:00 AM EST Clinical Support [facility] Laboratory Services [address] [address] [facility] 1[address] [place] [address] 04/09/2025 8:40 AM EST Office Visit [facility] Nephrology, Bone & Mineral Metabolism [address], [address] [place] [address] Lila Farris MD [address] [address] Scheduled Orders Name Type Priority Associated Diagnoses Orde r Schedule CBC and differential Lab Routine Renal cell carcinoma, unspecified laterality Expected: 03/09/2025, Expires: 03/09/2026 Comprehensive metabolic panel Lab Routine Renal cell carcinoma, unspecified laterality Expected: 03/09/2025, Expires: 03/09/2026 documented as of this encounter Visit Diagnoses [...] documented as of this encounter Care Teams Psychotherapist Social Worker Relationship Specialty Start Date End Date Brandi Ramírez APRN [phone] PCP - General 04/26/22 documented as of this encounter
--- OUTSIDE RECORDS SUMMARY | 2025-01-19 11:00 | XMS_ITS | Encounter Summary ---
Author Organization [facility] Address [address] [id number] Care Team Providers Care Carbonator Name Role Phone Brandi Ramírez APRN Primary Care Provider Reason for Visit * Episode Based Medications (Routine) - Closed Specialty Diagnoses / Procedures Referred By Apolinar callaway Referred To Contact Diagnoses Renal cell carcinoma, unspecified laterality Procedures Nivolumab / Ipilimumab Every 21 Days Hari Nunes MD [address] [facility] Rasheeda [address] [address] Phone: tel: fax: Hari Nunes MD [address] [facility] Ras[address] Ar[address] [address] Phone: tel: fax: Referral ID Status Reason Start Date Expiration Date Visits Re quested Visits Authorized [id number] Closed 11/17/2024 05/19/2026 1 4 Encounter Details Date Type Department Care Team (Latest Contact Info) Description 01/19/2025 11:00 AM EST - 01/19/2025 11:59 PM [facility] Hospital Encounter [facility] [address] [place] [address] Renal cell carcinoma, unspecified laterality (Primary Dx) [...] drink first t raul in the 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 (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-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) to steady your nerves or to get [...] Sign Reading Time Taken Comments Blood Pressure 161/84 01/19/2025 11:49 AM EST Pulse 75 01/19/2025 11:49 AM EST Temperature 36.5 C (97.7 F) 01/19/2025 11:49 AM EST Respiratory Rate 14 01/19/2025 11:49 AM EST Oxygen Saturation 97% 01/19/2025 11:49 AM EST Inhaled Oxygen Concentration - - Weight 116 kg (256 lb 2.8 oz) 01/19/2025 11:49 A M EST Height 182.9 cm (6') 01/19/2025 11:49 AM EST Body Mass Index 34.74 01/19/2025 11:49 AM EST documented in this encounter Functional Status * Over the past 2 weeks, how often have you been bothered by any of the following problems? Question Answer Date of Assessment Author Little interest or pleasure in doing things Not at all 01/19/2025 9:26 AM Dory Olivera Feeling down, depressed, or hopeless Not at all 01/19/2025 9:26 AM Dory Olivera Patient Health Questionnaire -2 Score 0 01/19/2025 9:26 AM Dory Olivera * Question Answer Date of Assessment Author Thoughts that you would be b carlos off or hurting yourself in some way Not at all 01/19/2025 9:26 AM Dory Olivera documented as of this encounter Medications at [...] Info) Description 02/02/2025 12:50 PM EST Appointment [facility] [address] 2nd [place] [address] 02/09/2025 10:30 AM EST Clinical Support [facility] Multidisciplinary Oncology Clinic [address] [place] [address] 02/09/2025 11:00 AM EST Office Visit [facility] [address] [place] [address] Princess Yen MD [address] [place] [address] 02/09/2025 12:00 PM EST Appointment [facility] 1 [address] [place] [address] 04/02/2025 8:00 AM EST Clinical Support [facility] Laboratory Services [address] [facility], 1st [place] [address] 04/09/2025 8:40 AM EST Office Visit [facility] Nephrology, Bone & Mineral Metabolism [address] [facility], [address] [place] [address] Lila Farris MD [address] [facility] [address] [place] [address] documented as of this encounter [...] Filter Required. Use 0.2 micron filter., On 01/19/25 at 1415, For 1 dose, Dilute in NS (Final concentration 1-2mg/mL)Indications:Renal cell carcinoma, unspecified laterality New Bag 01/19/2025 2:41 PM EST 115 mg 196 mL/hr nivolumab (Opdivo) 340 mg in sodium chloride 0.9 % 100 mL IVPB 340 mg (rounded from 348 mg = 3 mg/kg 116 kg Treatment plan Recorded weight), Intravenous, at 328 mL/hr, Administer over 30 Minutes, Once, Filter Required. Use 0.2 micron filter., On 01/19/25 at 1345, For 1 dose, NS 100 mLIndications:Renal cell carcinoma, unspecified laterality New Bag 01/19/2025 2:07 PM EST 340 mg 328 mL/hr documented in this encounter Additional Health Concerns Assessment Noted Time A fall risk assessment has been complete d for the patient 01/19/2025 11:49 AM EST A Body Mass Index follow-up plan has been documented for the patient 12/29/2024 1:14 PM EST documented as of this encounter Care Teams Carbonator Relationship Specialty Start Date End Date Brandi Ramírez APRN [id number] PCP - General 04/26/22 documented as of this encounter
--- OUTSIDE RECORDS SUMMARY | 2025-01-27 12:57 | XMS_ITS | Encounter Summary ---
Author Organization Healthcare Address [address] [place] [address] Care Team Providers Care Command And Control Officer Name Role Phone Brandi Ramírez APRN Primary Care Provider [phone] Encounter Details Date Type Department Care Team ([facility] st Contact Info) Description 10/30/2024 Results Follow-Up [facility] [address] [facility] [address] [place] [address] Princess Yen MD [address] [place] [address] Social History Tobacco Use Types Packs/Day Years Used Date Smoking Tobacco: Never Smokeless Tobacco: Never Alcohol Use Standard Drinks/Week [...] drink first t raul in the 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 (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) to steady your nerves or to get [...] on file documented as of this encounter Functional Status * Over the [...] * Question Answer Date of Assessment Author Feeling bad about yourself - or that you are a failure or have let yourself or your family down Not at all 11/17/2024 1:08 PM EDT Carmen Wing Thoughts that you would be b carols off or hurting yourself in some way Not at all 12/29/2024 9:34 AM Sandee Velazquez * Calculated C-SSRS Risk Score (Lifetime/Recent) Answer Date of Assessment Author No Risk Indicated 12/08/2024 8:58 AM Marichuy Beal * How difficult have these problems made it for you to do your work, take care of things at home, or get along with other people? Answer Date of Assessment Author Not difficult at all 11/17/2024 1:08 PM EDT Carmen Wing * Question Answer Date of Assessment Author 1. Wish to be (Past 1 Month) No 025 8:58 AM Marichuy Beal 2. Non-Specific Active Suici mecca Thoughts (Past 1 Month) No 12/08/2024 8:58 AM Melvi Beal 6. Suicidal Behavior (Lifetime) No 8:58 AM EST Marichuy Hummel documented as of this encounter Plan of Treatment Upcoming Encounters Date Type Department Care Team (Late st Contact Info) Description 02/02/2025 12:50 PM EST Appointment [facility] [address]nd [place] [address] 02/09/2025 10:30 AM EST Clinical Support [facility] Multidisciplinary Oncology Clinic [address] [place] [address] 02/09/2025 11:00 AM EST Office Visit [facility] Multidisciplinary Oncology Clinic [address] [place] [address] Princess Yen MD [address] [facility] [address] [place] [address] 02/09/2025 12:00 PM EST Appointment [facility] Infusion Clinic 1 [address] [place] [address] 04/02/2025 8:00 AM EST Clinical Support [facility] Laboratory Services [address] [facility], 1st [place] [address] 04/09/2025 8:40 AM EST Office Visit [facility] Nephrology, Bone & Mineral Metabolism [address] [facility], [address] [place] [address] Lila Farris MD [address] [facility] [address] [place] [address] documented as of this encounter Visit Diagnoses Not on filedocumented in this encounter Additional Health Concerns Assessment Noted Time A fall risk assessment has been complete d for the patient 10/20/2024 12:40 PM EDT A Body Mass Index follow-up plan has been documented for the patient 10/08/2024 10:25 AM EDT documented as of this encounter Care Teams Command And Control Officer Relationship Specialty Start Date End Date Brandi Ramírez APRN [id number] PCP - General 04/26/22 documented as of this encounter
--- OUTSIDE RECORDS SUMMARY | 2025-01-27 12:57 | XMS_ITS | Encounter Summary ---
Author Organization Healthcare Address [address] [id number] Care Team Providers Care Manager Functional Name Role Phone Brandi Ramírez APRN Primary Care Provider [phone] Reason for Visit * Reason Comments Med Refill Encounter Details Date Type Department Care Team ([facility] st Contact Info) Description 03/12/2024 Refill [facility] Nephrology, Bone & Mineral Metabolism [address] [facility], [address] [place] [address] Lila Farris MD [address] [place] [address] Social History Tobacco Use Types Packs/Day Years Used Date Smoking Tobacco: Never Smokeless Tobacco: Never Alcohol Use Standard Drinks/Week Comments Never 0 (1 standard drink = 0.6 oz pur e alcohol) PHQ-2 Answer Date Recorded Patient Health Questionnaire-2 Score 0 09/24/2023 CAGE ASSESSMENT Answer Date Recorded Cage unable [...] drink first t raul in the morning (EYE-CAFETERIA CLERK) to steady your nerves or to get rid of a hangover? 0 05/23/2022 CAGE Questionnaire Score 0 023 PHQ-2A Answer Date Recorded Patient Health Questionnaire-2 Score 0 07/05/2022 Sex and Gender Information Value Date Recorded Sex Assigned at Not on file Legal Sex Male 11:42 AM EDT Gender Identity Not on file Sexual Orientation Not on file documented as of this encounter Miscellaneous Notes * Telephone Encounter - Lila Farris MD - 03/21/2024 4:37 PM EST I think I may have filled this in the past to bridge to a point of getting to another appointment. I would recommend follow-up with PCP. Jenni Prabhakar documented in this encounter Plan of Treatment Upcoming Encounters Date Type Department Care Team (Late st Contact Info) Description 02/02/2025 12:50 PM EST Appointment [facility] [address], [address]nd [place] [address] 02/09/2025 10:30 AM EST Clinical Support [facility] Multidisciplinary Oncology Clinic [address] [place] [address] 02/09/2025 11:00 AM EST Office Visit [facility] Multidisciplinary Oncology Clinic [address] [place] [address] Princess Yen MD [address] [place] [address] 02/09/2025 12:00 PM EST Appointment [facility] Infusion Clinic 1 [address] [place] [address] 04/02/2025 8:00 AM EST Clinical Support [facility] Laboratory Services [address] [facility], 1st [place] [address] 04/09/2025 8:40 AM EST Office Visit [facility] Nephrology, Bone & Mineral Metabolism [address] [facility], [address] [place] [address] Lila Farris MD [address] [facility] [address] [place] [address] documented as of this encounter Visit Diagnoses Not on filedocumented in this encounter Additional Health Concerns Assessment Noted Time A fall risk assessment has been complete d for the patient 01/23/2024 9:31 AM EST A Body Mass Index follow-up plan has been documented for the patient 01/24/2024 9:12 AM EST documented as of this encounter Care Teams Manager Functional Relationship Specialty Start Date End Date Brandi Ramírez APRN [id number] PCP - General 04/26/22 documented as of this encounter
--- OUTSIDE RECORDS SUMMARY | 2025-01-27 12:57 | XMS_ITS | Encounter Summary ---
Author Organization Healthcare Address [address] [place] [address] Care Team Providers Care Editorial Writer Name Role Phone Brandi Ramírez PILE DRIVING NOZZLEMAN Primary Care Provider Encounter Details Date Type Department Care Team (Late Contact Info) Description 03/24/2022 Orders Only External Location [address] [place] [address] Brandi Ramírez APRN [id number] Social History Tobacco Use Types Packs/Day Years Used Date Smoking Tobacco: Never Assessed Sex and Gender Information Value Date Recorded Sex Assigned at Not on file Legal Sex Male 11:42 AM EDT Gender Identity Not on file Sexual Orientation Not on file documented as of this encounter Plan of Treatment Upcoming Encounters Date Type Department Care Team (Late Contact Info) Description 02/02/2025 12:50 PM EST Appointment [facility] [address], [address]nd [place] [address] 02/09/2025 10:30 AM EST Clinical Support [facility] [address] [place] [address] 02/09/2025 11:00 AM EST Office Visit [facility] [address] [place] [address] Princess Yen MD [facility] [address] [address] 02/09/2025 12:00 PM EST Appointment [facility] Infusion Clinic 1 [address] [place] [address] 04/02/2025 8:00 AM EST Clinical Support [facility] Laboratory Services [address], 1st [place] [address] 04/09/2025 8:40 AM EST Office Visit [facility] Nephrology, Bone & Mineral Metabolism [address], [address] [place] [address] Lila Farris MD [address] [place] [address] documented as of this encounter Procedures Procedure Name Priority Date/Time Associated Diagnosis Comments US OUTSIDE IMAGES 03/24/2022 1:56 PM EST documented in this encounter Results * US OUTSIDE IMAGES (03/24/2022 1:56 PM EST) Anatomical Region Laterality Modality Ultrasound 03/24/2022 1:56 PM EST us Brandi Ramírez APRN IMG US PROCEDURES Final Resu lt documented in this encounter Visit Diagnoses Not on filedocumented in this encounter Care Teams Editorial Writer Relationship Specialty Start Date End Date Brandi Ramírez APRN [id number] PCP - General 04/26/22 documented as of this encounter
--- OUTSIDE RECORDS SUMMARY | 2025-01-27 12:57 | XMS_ITS | Encounter Summary ---
Author Organization Healthcare Address [address] [place] [address] Care Team Providers Care Warehouse Analyst Name Role Phone Brandi Ramírez APRN Primary Care Provider [phone] Encounter Details Date Type Department Care Team ([facility] Contact Info) Description 01/20/2025 Results Follow-Up [facility] [address] [facility] [address] [place] [address] Princess Yen MD [address] [place] [address] Social History Tobacco Use Types [...] drink first t raul in the morning (EYE-AUDIENCE DEVELOPMENT MANAGER) to steady your nerves or to get [...] Info) Description 02/02/2025 12:50 PM EST Appointment [facility] [address], [address]nd [place] [address] 02/09/2025 10:30 AM EST Clinical Support [facility] Multidisciplinary Oncology Clinic [address] [place] [address] 02/09/2025 11:00 AM EST Office Visit [facility] Multidisciplinary Oncology Clinic [address] [place] [address] Princess Yen MD [address] [place] [address] 02/09/2025 12:00 PM EST Appointment [facility] Infusion Clinic 1 [address] [place] [address] 04/02/2025 8:00 AM EST Clinical Support [facility] Laboratory Services [address] [facility], 1st [place] [address] 04/09/2025 8:40 AM EST Office Visit [facility] Nephrology, Bone & Mineral Metabolism [address] [facility], [address] [place] [address] Lila Farris MD [address] [facility] [address] [place] [address] documented as of this encounter Visit Diagnoses Not on filedocumented in this encounter Additional Health Concerns Assessment Noted Time A fall risk assessment has been complete d for the patient 01/19/2025 11:49 AM EST A Body Mass Index follow-up plan has been documented for the patient 12/29/2024 1:14 PM EST documented as of this encounter Care Teams Warehouse Analyst Relationship Specialty Start Date End Date Brandi Ramírez APRN [id number] PCP - General 04/26/22 documented as of this encounter
--- OUTSIDE RECORDS SUMMARY | 2025-01-27 12:57 | XMS_ITS ---
Author Organization [facility] Address [address] [id number] Care Team Providers Care Quality Controller Name Role Phone Brandi Ramírez APRN Primary Care Provider Active Problems Problem Noted Date Diagnosed Date Renal cell carcinoma 10/27/2024 Severe obesity (BMI 35.0-39.9) with comorbidity 01/23/2024 Skin lesion 11/01/2023 Diabetic acidosis, type II 10/02/2023 Overview (10/02/2023): FSBS 128-145 Seasonal allergies 10/02/2023 Stage 3 chronic kidney disease 03/22/2023 Assessment & Plan (09/25/2024 7:37 AM EDT): Renal mass 05/23/2022 High cholesterol 05/22/2022 HTN (hypertension) 05/22/2022 Assessment & Plan (09/25/2024 7:37 AM EDT): Diabetes mellitus, type 2 05/22/2022 Assessment & Plan (09/25/2024 7:37 AM EDT): Cancer Current Treatment and Therapy Plans Nivolumab Every 28 Days* Plan Start Date:02/09/2025 Plan Provider:Princess Yen MD Linked Problems Renal cell carcinoma, unspec ified laterality Treatment Medications Current Day (Day 1 , Cycle 1 - Planned for 02/09/2025) Next Day (Day 1, Cycle 2 - Planned for 03/09/2025) No medications scheduled. No medications schedul ed. No medications scheduled. Past Treatment and Therapy Plans Oncology Treatment Plan Name Start Date Discontinue Date Treatment Medications Discontinue Reason Plan Provider Cycles Nivolumab / Ipilimumab Every 21 Days 11/18/1901/27/2025 ipilimumab (Yervoy) 50 mL IVPBnivolumab (Opdivo) IVPB Therapy Complete Princess Yen MD 4 of 4 cycles started Lifetime Dose Tracking * Chemical Lifetime Dose Automatic Entry Manual Entr y CTDIvol 210 mGy 0 mGy 210 mGy Radiation (DLP) 1,507 mGy-cm 0 mGy-cm 1,507 mGy-cm
--- OUTSIDE RECORDS SUMMARY | 2025-01-27 12:57 | XMS_ITS | Encounter Summary ---
Author Organization Healthcare Address [address] [id number] Care Team Providers Care Dietary Clerk Name Role Phone Brandi Ramírez APRN Primary Care Provider [phone] Encounter Details Date Type Department Care Team (Latest Contact Info) Description 12/01/2024 Travel Social History Tobacco Use Types Packs/Day Years [...] drink first t raul in the morning (EYE-PIG CASTING MACHINE OPERATOR) to steady your nerves or to get [...] Upcoming Encounters Date Type Department Care Team ([facility] st Contact Info) Description 02/02/2025 12:50 PM EST Appointment [facility] [address] 2nd [place] [address] 02/09/2025 10:30 AM EST Clinical Support [facility] Multidisciplinary Oncology Clinic [address] [place] [address] 02/09/2025 11:00 AM EST Office Visit [facility] Multidisciplinary Oncology Clinic [address] [place] [address] Princess Yen MD [address] [place] [address] 02/09/2025 12:00 PM EST Appointment [facility] Infusion Clinic 1 [address] [place] [address] 04/02/2025 8:00 AM EST Clinical Support [facility] Laboratory Services [address] [facility], 1st [place] [address] 04/09/2025 8:40 AM EST Office Visit [facility] Nephrology, Bone & Mineral Metabolism [address] [facility], [address] [place] [address] Lila Farris MD [address] [facility] [address] [place] [address] documented as of this encounter Visit Diagnoses Not on filedocumented in this encounter Additional Health Concerns Assessment Noted Time A fall risk assessment has been complete d for the patient 11/17/2024 1:48 PM EDT A Body Mass Index follow-up plan has been documented for the patient 11/17/2024 4:50 PM EDT documented as of this encounter Care Teams Dietary Clerk Relationship Specialty Start Date End Date Brandi Ramírez APRN [id number] PCP - General 04/26/22 documented as of this encounter
--- OUTSIDE RECORDS SUMMARY | 2025-01-27 12:57 | XMS_ITS | Encounter Summary ---
Author Organization Healthcare Address [address] [id number] Care Team Providers Care Carpet Binder Name Role Phone Brandi Ramírez APRN Primary Care Provider [phone] Encounter Details Date Type Department Care Team ([facility] st Contact Info) Description 08/22/2024 Lab Requisition [facility] [address] [place] [address] Jarred Umaña MD [address] [place] [address] Chronic kidney disease, stage 3 unspecified (CMS/HCC) Social History Tobacco Use Types Packs/Day Years Used Date Smoking Tobacco: Never Smokeless Tobacco: Never Alcohol Use Standard Drinks/Week Comments Never 0 (1 standard drink = 0.6 oz pur e alcohol) PHQ-2 Answer Date Recorded Patient Health Questionnaire-2 Score 0 08/20/2024 CAGE ASSESSMENT Answer Date Recorded Cage unable [...] drink first t raul in the morning (EYE-MANUFACTURING QUALITY ENGINEER) to steady your nerves or to [...] 02/02/2025 12:50 PM EST Appointment [facility] [address]nd [place] [address] 02/09/2025 10:30 AM EST Clinical Support [facility] Multidisciplinary Oncology Clinic [address] [place] [address] 02/09/2025 11:00 AM EST Office Visit [facility] Multidisciplinary Oncology Clinic [address] [place] [address] Princess Yen MD [address] [facility] [address] [place] [address] 02/09/2025 12:00 PM EST Appointment [facility] Infusion Clinic 1 [address] [place] [address] 04/02/2025 8:00 AM EST Clinical Support [facility] Laboratory Services [address] [facility], 1st [place] [address] 04/09/2025 8:40 AM EST Office Visit [facility] Nephrology, Bone & Mineral Metabolism [address] [facility], [address] [place] [address] Lila Farris MD [address] [facility] [address] [place] [address] documented as of this encounter Procedures Procedure Name Priority Date/Time Associated Diagnosis Comments AP MISCELLANEOUS LAB TEST (SO) Routine 08/22/2024 2:57 PM EDT Chronic kidney disease, stage 3 unspecified (CMS/HCC) documented in this encounter Results * - AP Miscellaneous Test (08/22/2024 2:57 PM EDT) Test name Savanah Oconnell 09/08/2024 7:54 AM EDT [facility] Comment:[id number], [id number] Test Result see uploaded results on [id number] 09/08/2024 7:54 AM EDT [facility] See Scanned Result 09/08/2024 7:54 AM EDT [facility] Tissue 08/22/2024 2:57 PM EDT 08/22/2024 2:57 PM EDT us Jarred Umaña MD LAB REF LAB BLOOD AND FLUID ORD Final Result [facility] [address] [place] [address] documented in this encounter Visit Diagnoses Diagnosis Chronic kidney disease, stage 3 unspecified (CMS/HCC) Renal cell carcinoma, unspecified laterality- Primary documented in this encounter Additional Health Concerns Assessment Noted Time A fall risk assessment has been complete d for the patient 08/20/2024 1:02 PM EDT A Body Mass Index follow-up plan has been documented for the patient 08/21/2024 12:17 PM EDT documented as of this encounter Care Teams Carpet Binder Relationship Specialty Start Date End Date Brandi Ramírez APRN [id number] PCP - General 04/26/22 documented as of this encounter
--- OUTSIDE RECORDS SUMMARY | 2025-01-27 12:57 | XMS_ITS | Encounter Summary ---
Author Organization Healthcare Address [address] [id number] Care Team Providers Care Machine Worker Name Role Phone Brandi Ramírez APRN Primary Care Provider [phone] Encounter Details Date Type Department Care Team ([facility] st Contact Info) Description 01/19/2025 Orders Only [facility] [address] [place] [address] Augusto Perez MD 800 [facility] [address] [place] [address] Social History Tobacco Use Types Packs/Day Years [...] drink first t raul in the morning (EYE-FIBERGLASS BONDING MACHINE TENDER) to steady your nerves or to get [...] Dory Olivera documented as of this encounter Plan of Treatment Upcoming Encounters Date Type Department Care Team (Late st Contact Info) Description 02/02/2025 12:50 PM EST Appointment [facility] [address], [address]nd [place] [phone] 02/09/2025 10:30 AM EST Clinical Support [facility] Multidisciplinary Oncology Clinic [address] [place] [address] 02/09/2025 11:00 AM EST Office Visit [facility] Multidisciplinary Oncology Clinic [address] [place] [address] Princess Yen MD [address] [place] [address] 02/09/2025 12:00 PM EST Appointment [facility] Infusion Clinic [address] [place] [address] 04/02/2025 8:00 AM EST Clinical Support [facility] Laboratory Services [address], 1st [place] [address] 04/09/2025 8:40 AM EST Office Visit [facility] Nephrology, Bone & Mineral Metabolism [address] [place] [address] Lila Farris MD [address] [place] [address] documented as of this encounter Visit Diagnoses Not on filedocumented in this encounter Additional Health Concerns Assessment Noted Time A fall risk assessment has been complete d for the patient 01/19/2025 11:49 AM EST A Body Mass Index follow-up plan has been documented for the patient 12/29/2024 1:14 PM EST documented as of this encounter Care Teams Machine Worker Relationship Specialty Start Date End Date Brandi Ramírez APRN [id number] PCP - General 04/26/22 documented as of this encounter
--- OUTSIDE RECORDS SUMMARY | 2025-01-27 12:57 | XMS_ITS | Encounter Summary ---
Author Organization Healthcare Address [address] [place] [address] Care Team Providers Care Personal Investment Adviser Name Role Phone Brandi Ramírez APRN Primary Care Provider Encounter Details Date Type Department Care Team (Late Contact Info) Description 03/29/2022 Orders Only External Location [address] [place] [phone] [place] [id number] Social History Tobacco Use Types Packs/Day [...] Info) Description 02/02/2025 12:50 PM EST Appointment [facility] [address] 2nd [place] [address] 02/09/2025 10:30 AM EST Clinical Support [facility] [address] [place] [address] 02/09/2025 11:00 AM EST Office Visit [facility] [address] [place] [address] Princess Yen MD [address] [place] [address] 02/09/2025 12:00 PM EST Appointment [facility] Infusion Clinic [address] [place] [address] 04/02/2025 8:00 AM EST Clinical Support [facility] Laboratory Services [address], 1st [place] [address] 04/09/2025 8:40 AM EST Office Visit [facility] Nephrology, Bone & Mineral Metabolism [address] [place] [address] Lila Farris MD [address] [place] [address] documented as of this encounter Procedures Procedure Name Priority Date/Time Associated Diagnosis Comments CT OUTSIDE IMAGES 03/29/2022 10:20 AM EST documented in this encounter Results * CT OUTSIDE IMAGES (03/29/2022 10:20 AM EST) Anatomical Region Laterality Modality Computed Tomogra phy 03/29/2022 10:2 0 AM EST Vickey Nugent MD IMG CT PROCEDURES Final Result documented in this encounter Visit Diagnoses Not on filedocumented in this encounter Care Teams Personal Investment Adviser Relationship Specialty Start Date End Date Brandi Ramírez APRN [id number] PCP - General 04/26/22 documented as of this encounter
--- OUTSIDE RECORDS SUMMARY | 2025-01-27 12:57 | XMS_ITS | Encounter Summary ---
Author Organization Healthcare Address [address] [id number] Care Team Providers Care Axle Polisher Name Role Phone Brandi Ramírez APRN Primary Care Provider [phone] Encounter Details Date Type Department Care Team (Latest Contact Info) Description 01/19/2025 Travel Social History Tobacco Use Types Packs/Day [...] drink first t raul in the morning (EYE-INFRASTRUCTURE ENGINEER) to steady your nerves or to [...] Not at all 01/19/2025 9:26 AM Dory Olivrea documented as of this encounter Plan of Treatment Upcoming Encounters Date Type Department Care Team (Late st Contact Info) Description 02/02/2025 12:50 PM EST Appointment [facility] [address], [address] [place] [address] 02/09/2025 10:30 AM EST Clinical Support [facility] Multidisciplinary Oncology Clinic [address] [place] [address] 02/09/2025 11:00 AM EST Office Visit [facility] Multidisciplinary Oncology Clinic [address] [place] [address] Princess Yen MD [address] [place] [address] 02/09/2025 12:00 PM EST Appointment [facility] Infusion Clinic [address] [place] [address] 04/02/2025 8:00 AM EST Clinical Support [facility] Laboratory Services [address] [facility], 1st [place] [address] 04/09/2025 8:40 AM EST Office Visit [facility] Nephrology, Bone & Mineral Metabolism [address] [facility], [address] [place] [address] Lila Farris MD [address] [place] [address] documented as of this encounter Visit Diagnoses Not on filedocumented in this encounter Additional Health Concerns Assessment Noted Time A fall risk assessment has been complete d for the patient 01/19/2025 11:49 AM EST A Body Mass Index follow-up plan has been documented for the patient 12/29/2024 1:14 PM EST documented as of this encounter Care Teams Axle Polisher Relationship Specialty Start Date End Date Brandi Ramírez APRN [id number] PCP - General 04/26/22 documented as of this encounter
--- OUTSIDE RECORDS SUMMARY | 2025-01-27 12:57 | XMS_ITS | Encounter Summary ---
Author Organization Healthcare Address [address] [id number] Care Team Providers Care Associate Theatre Professor Name Role Phone Brandi Ramírez APRN Primary Care Provider [phone] Encounter Details Date Type Department Care Team (Latest Contact Info) Description 12/29/2024 Travel Social History Tobacco Use Types Packs/Day [...] drink first t raul in the morning (EYE-BALLISTICIAN) to steady your nerves or to get [...] Sandee Velazquez documented as of this encounter Plan of Treatment Upcoming Encounters Date Type Department Care Team (Late st Contact Info) Description 02/02/2025 12:50 PM EST Appointment [facility] [address], 2nd [place] [address] 02/09/2025 10:30 AM EST Clinical Support [facility] Multidisciplinary Oncology Clinic [address] [place] [address] 02/09/2025 11:00 AM EST Office Visit [facility] Multidisciplinary Oncology Clinic [address] [place] [address] Princess Yen MD [address] [place] [address] 02/09/2025 12:00 PM EST Appointment [facility] Infusion Clinic 1 [address] [place] [address] 04/02/2025 8:00 AM EST Clinical Support [facility] Laboratory Services [address] [facility], 1st [place] [address] 04/09/2025 8:40 AM EST Office Visit [facility] Nephrology, Bone & Mineral Metabolism [address] [facility], [address] [place] [address] Lila Farris MD [address] [facility] [address] [place] [address] documented as of this encounter Visit Diagnoses Not on filedocumented in this encounter Additional Health Concerns Assessment Noted Time A fall risk assessment has been complete d for the patient 12/29/2024 10:43 AM EST A Body Mass Index follow-up plan has been documented for the patient 12/29/2024 1:14 PM EST documented as of this encounter Care Teams Associate Theatre Professor Relationship Specialty Start Date End Date Brandi Ramírez APRN [id number] PCP - General 04/26/22 documented as of this encounter
--- OUTSIDE RECORDS SUMMARY | 2025-01-27 12:57 | XMS_ITS | Encounter Summary ---
Author Organization Healthcare Address [address] [id number] Care Team Providers Care Education Liaison Name Role Phone Brandi Ramírez APRN Primary Care Provider [phone] Encounter Details Date Type Department Care Team (Latest Contact Info) Description 12/11/2024 Travel Social History Tobacco Use Types Packs/Day [...] drink first t raul in the morning (EYE-MECHANICAL PRESS OPERATOR) to steady your nerves or to [...] Info) Description 02/02/2025 12:50 PM EST Appointment [facility] CT [address], 2nd [place] [address] 02/09/2025 10:30 AM EST Clinical Support [facility] Multidisciplinary Oncology Clinic [address] [place] [address] 02/09/2025 11:00 AM EST Office Visit [facility] Multidisciplinary Oncology Clinic [address] [place] [address] Princess Yen MD [address] [place] [address] 02/09/2025 12:00 PM EST Appointment [facility] Infusion Clinic 1 [address] [place] [address] 04/02/2025 8:00 AM EST Clinical Support [facility] Laboratory Services [address] [facility], 1st [place] [address] 04/09/2025 8:40 AM EST Office Visit [facility] Nephrology, Bone & Mineral Metabolism [address] [facility], [address] [place] [address] Lila Farris MD [address] [facility] [address] [place] [address] documented as of this encounter Visit Diagnoses Not on filedocumented in this encounter Additional Health Concerns Assessment Noted Time A fall risk assessment has been complete d for the patient 12/11/2024 8:44 AM EST A Body Mass Index follow-up plan has been documented for the patient 12/19/2024 3:02 AM EST documented as of this encounter Care Teams Education Liaison Relationship Specialty Start Date End Date Brandi Ramírez APRN [id number] PCP - General 04/26/22 documented as of this encounter
--- OUTSIDE RECORDS SUMMARY | 2025-01-27 12:57 | XMS_ITS | Encounter Summary ---
Author Organization Healthcare Address [address] [id number] Care Team Providers Care Recreational Counselor Name Role Phone Brandi Ramírez APRN Primary Care Provider [phone] Encounter Details Date Type Department Care Team (Latest Contact Info) Description 12/08/2024 Travel Social History Tobacco Use Types Packs/Day [...] drink first t raul in the morning (EYE-EXTRUSION DIE TEMPLATE MAKER) to steady your nerves or to get [...] as of this encounter Functional Status * Calculated C-SSRS [...] 02/02/2025 12:50 PM EST Appointment [facility] CT [address], [address]nd [place] [address] 02/09/2025 10:30 AM EST Clinical Support [facility] Multidisciplinary Oncology Clinic [address] [place] [address] 02/09/2025 11:00 AM EST Office Visit [facility] Multidisciplinary Oncology Clinic [address] [place] [address] Princess Yen MD [address] [place] [address] 02/09/2025 12:00 PM EST Appointment [facility] Infusion Clinic [address] [place] [address] 04/02/2025 8:00 AM EST Clinical Support [facility] Laboratory Services [address] [facility], 1st [place] [address] 04/09/2025 8:40 AM EST Office Visit [facility] Nephrology, Bone & Mineral Metabolism [address] [facility], [address] [place] [address] Lila Farris MD [address] [phone] documented as of this encounter Visit Diagnoses Not on filedocumented in this encounter Additional Health Concerns Assessment Noted Time A fall risk assessment has been complete d for the patient 12/08/2024 9:00 AM EST A Body Mass Index follow-up plan has been documented for the patient 12/08/2024 12:00 PM EST documented as of this encounter Care Teams Recreational Counselor Relationship Specialty Start Date End Date Brandi Ramírez APRN [id number] PCP - General 04/26/22 documented as of this encounter
--- OUTSIDE RECORDS SUMMARY | 2025-01-27 12:57 | XMS_ITS | Encounter Summary ---
Author Organization Healthcare Address [address] [id number] Care Team Providers Care Drawer Liner Name Role Phone Brandi Ramírez APRN Primary Care Provider [phone] Reason for Visit * Reason Comments Med Refill Encounter Details Date Type Department Care Team ([facility] st Contact Info) Description 06/16/2024 Refill [facility] Nephrology, Bone & Mineral Metabolism [address] [facility], [address] [place] [address] Lila Farris MD [address] [place] [address] Social History Tobacco Use Types [...] drink first t raul in the morning (EYE-LIVESTOCK RANCHER) to steady your nerves or to get [...] Telephone Encounter - Lila Farris MD - 06/18/2024 10:09 AM EDT I refilled this for 1 month. Ideally, any refills should go to PCP. documented in this encounter Plan of Treatment Upcoming Encounters Date Type Department Care Team (Late st Contact Info) Description 02/02/2025 12:50 PM EST Appointment [facility] CT [address] 2nd [place] [address] 02/09/2025 10:30 AM EST Clinical Support [facility] Multidisciplinary Oncology Clinic [address] [place] [address] 02/09/2025 11:00 AM EST Office Visit [facility] Multidisciplinary Oncology Clinic [address] [place] [address] Princess Yen MD [address] [address] 02/09/2025 12:00 PM EST Appointment [facility] Infusion Clinic 1 [address] [place] [address] 04/02/2025 8:00 AM EST Clinical Support [facility] Laboratory Services [address] [facility], 1st [place] [address] 04/09/2025 8:40 AM EST Office Visit [facility] Nephrology, Bone & Mineral Metabolism [address] [facility], [address] [place] [address] Lila Farris MD [address] [address] documented as of this encounter Visit Diagnoses Not on filedocumented in this encounter Additional Health Concerns Assessment Noted Time A fall risk assessment has been complete d for the patient 06/04/2024 9:22 AM EDT A Body Mass Index follow-up plan has been documented for the patient 06/04/2024 10:20 AM EDT documented as of this encounter Care Teams Drawer Liner Relationship Specialty Start Date End Date Brandi Ramírez APRN [id number] PCP - General 04/26/22 documented as of this encounter
--- OUTSIDE RECORDS SUMMARY | 2025-01-27 12:57 | XMS_ITS | Clinical Summary ---
Author Organization [facility] Address [address] [place] [address] Care Team Providers Care Blow Moulding Machine Operator Name Role Phone Brandi Ramírez APRN Primary Care Provider [phone] Allergies No known active allergies Medications furosemide (Lasix) 40 MG tablet Take 1 tablet by mouth daily as needed (lower extremity edema). 30 tablet 11 5 Active Additional Information Patient not taking.Reported on 12/29/2024 tiZANidine (Zanaflex) 4 MG tablet Take 1 tablet by mouth at night as needed for muscle spasms. PRN 30 tablet 1 5 Active prochlorperazin e (Compazine) 10 MG tabletIndicatio ns:Renal cell carcinoma, unspecified laterality Take 1 tablet by mouth every 6 hours as needed for nausea or vomiting. 30 tablet 5 5 Active Additional Information Patient not taking.Reported on 12/29/2024 dapagliflozin (Farxiga) 10 MG tablet Take 1 tablet by mouth daily. 30 tablet 11 5 Active hydroCHLOROthia zide (HYDRODiuril) 25 MG tablet Take 1 tablet by mouth daily. 30 tablet 11 5 06/10/19 26 Active NIFEdipine CC (Adalat CC) 60 MG 24 hr tablet Take 1 tablet by mouth daily. Do not crush, chew, or split. 90 tablet 3 5 Active valsartan (Diovan) 160 MG tablet Take 0.5 tablets by mouth 2 times a day. 180 tablet 3 5 Active hydrocortisone 2.5 % cream Apply to rash up to twice daily continuously until rash resolves some and as needed 28 g 1 5 Active Active Problems Problem Noted Date Diagnosed Date [...] & Plan (09/25/2024 7:37 AM EDT): Cancer Encounters Date Type Department Care Team Description 01/20/2025 Results Follow-Up [facility] [address] [place] [address] Princess Yen MD 01/19/2025 11:00 AM EST - 01/19/2025 11:59 PM EST Hospital Encounter [facility] Infusion Clinic [address] [place] [address] Renal cell carcinoma, unspecified laterality (Primary Dx) Discharge Disposition: Home or Self Care 01/19/2025 9:30 AM EST Office Visit [facility] Multidisciplinary Oncology Clinic [address] [place] [address] Meka Rowe, WIRE DRAWING DIE MAKER, DNP Renal cell carcinoma, unspecified laterality (Primary Dx) 01/19/2025 9:00 AM EST Clinical Support [facility] Multidisciplinary Oncology Clinic [address] [place] [address] Renal cell carcinoma, unspecified laterality 01/19/2025 Orders Only [facility] Multidisciplinary Oncology Clinic [address] [place] [address] Augusto Perez MD 01/19/2025 Travel 12/29/2024 10:42 AM EST - 12/29/2024 11:59 PM EST Hospital Encounter [facility] [address] [place] [address] Renal cell carcinoma, unspecified laterality (Primary Dx) Discharge Disposition: Home or Self Care 12/29/2024 9:30 AM EST Office Visit [facility] [address] [place] [address] Princess Yen MD Renal cell carcinoma, unspecified laterality (Primary Dx) 12/29/2024 Travel 12/11/2024 8:40 AM EST Office Visit [facility] Nephrology, Bone & Mineral Metabolism [address], [address] [place] [address] Lila Farris MD Stage 3 chronic kidney disease, unspecified whether stage 3a or 3b CKD (CMS/HCC) (Primary Dx); Hypertension, unspecified type; Proteinuria, unspecified type; H/O partial nephrectomy; Renal cell carcinoma, unspecified laterality 12/11/2024 Travel 12/08/2024 9:31 AM EST - 12/08/2024 11:59 PM EST Hospital Encounter [facility] [address] [place] [id number] Renal cell carcinoma, unspecified laterality (Primary Dx) Discharge Disposition: Home or Self Care 12/08/2024 9:30 AM EST Office Visit [facility] [address] [place] [address] Princess Yen MD Renal cell carcinoma, unspecified laterality (Primary Dx) 12/08/2024 Travel 12/01/2024 Travel 11/17/2024 1:44 PM EDT - 11/17/2024 11:59 PM EDT Hospital Encounter [facility]fusion [facility] [address] [place] [phone] Renal cell carcinoma, unspecified laterality (Primary Dx) Discharge Disposition: Home or Self Care 11/17/2024 1:00 PM EDT Office Visit [facility] [address] [place] [address] Princess Yen MD Renal cell carcinoma, unspecified laterality (Primary Dx) 11/17/2024 Travel 10/30/2024 Results Follow-Up [facility] [address] [address] Princess Yen MD from Last 3 Months Family History Medical History Relation Name Comments Cancer Brother Diabetes Brother Relation Name Status Comments Brother Social History Tobacco Use Types Packs/Day Years [...] drink first t raul in the morning (EYE-WAXING MACHINE OPERATOR) to steady your nerves or [...] on file Sexual Orientation Not on file Last Filed Vital Signs Vital Sign Reading [...] Mass Index 34.74 01/19/2025 11:49 AM EST Plan of Treatment Upcoming Encounters Date Type Department Care Team (Late st Contact Info) Description 02/02/2025 12:50 PM EST Appointment [facility] [address] [place] [phone] 02/09/2025 10:30 AM EST Clinical Support [facility] Multidisciplinary Oncology Clinic [address] [place] [address] 02/09/2025 11:00 AM EST Office Visit [facility] Multidisciplinary Oncology Clinic [address] [place] [address] Princess Yen MD [address] [place] [address] 02/09/2025 12:00 PM EST Appointment [facility] Infusion Clinic [address] [place] [address] 04/02/2025 8:00 AM EST Clinical Support [facility] Laboratory Services [address] [place] [address] 04/09/2025 8:40 AM EST Office Visit [facility] Nephrology, Bone & Mineral Metabolism [address], [address] [place] [address] Lila Farris MD [address] [place] [address] Health Maintenance Due Date Last Done Comments [facility]-Diabetes: Hemoglobin A1C 1955 [facility]-Medicare Annual Wellness (AWV) 1955 [facility]-/Child/Adol SDOH Screenings 1955 Diabetes: Dental Exam 05/05/1965 [facility]- SDOH Screenings 05/05/1973 [facility]-Adult SDOH Screenings 05/05/1973 [facility]-DTaP,Tdap,and Td Vaccines (1 - Tdap) 05/05/1974 [facility]-Pneumococcal Vaccine: 50+ Years (1 of 2 - PCV) 05/05/1974 [facility]-Zoster Vaccines (1 of 2) 05/05/1974 CT Colonography 05/05/2000 Colonoscopy 05/05/2000 FIT-DNA 05/05/2000 FIT 05/05/2000 FOBT 05/05/2000 Sigmoidoscopy 05/05/2000 [facility]-Colorectal Cancer Screening 05/05/2000 [facility]-RSV Vaccine: 60+ Years or (1 - Risk 50-74 years 1-dose series) 05/05/2005 [id number] Vaccine (3 - Moderna risk series) 04/14/2020 03/17/2020, 02/18/2020 [facility]-Influenza Vaccine (#1) 10/06/202412/27, 12/09/2020, 12/28/2019, Additional history exists [facility]-Depression Screening 01/19/2026 025, 12/08/2024, 12/08/2024 [facility]-Hepatitis C Screening Completed 12/08/2022 [facility]-Obesity Intervention Completed 025, 12/29/2024, 12/11/2024, Additional history exists HPV Vaccines (No Doses Required) Completed [facility]-HIB Vaccines Aged Out No longer e ligible based on patient's age to complete this topic [facility]-Hepatitis A Vaccines Aged Out No longer eligible based on patient's age to complete this topic [facility]-IPV Vaccines Aged Out No longer e ligible based on patient's age to complete this topic [facility]-Rotavirus Vaccines Aged Out No lo nger eligible based on patient's age to complete this topic Procedures Procedure Name Priority Date/Time Associated Diagnosis Comments CBC WITH AUTO DIFFERENTIAL Routine 01/19/2025 9:13 AM EST Renal cell carcinoma, unspecified laterality COMPREHENSIVE METABOLIC PANEL, PLASMA Routine 01/19/2025 9:13 AM EST Renal cell carcinoma, unspecified laterality CBC WITH AUTO DIFFERENTIAL Routine 12/29/2024 8:34 AM EST Renal cell carcinoma, unspecified laterality COMPREHENSIVE METABOLIC PANEL, PLASMA Routine 12/29/2024 8:34 AM EST Renal cell carcinoma, unspecified laterality PROTEIN, URINE, RANDOM WITH CREATININE Routine 12/29/2024 8:34 AM EST Stage 3 chronic kidney disease, unspecified whether stage 3a or 3b CKD (CMS/HCC) TSH REFLEX FT4 Routine 12/08/2024 8:42 AM EST Renal cell carcinoma, unspecified laterality COMPREHENSIVE METABOLIC PANEL, PLASMA Routine 12/08/2024 8:42 AM EST Renal cell carcinoma, unspecified laterality CBC WITH AUTO DIFFERENTIAL Routine 12/08/2024 8:42 AM EST Renal cell carcinoma, unspecified laterality PROTEIN, URINE, RANDOM WITH CREATININE Routine 12/01/2024 8:10 AM EDT Stage 3 chronic kidney disease, unspecified whether stage 3a or 3b CKD (CMS/HCC) URINALYSIS WITH REFLEX MICROSCOPIC Routine 12/01/2024 8:10 AM EDT Stage 3 chronic kidney disease, unspecified whether stage 3a or 3b CKD (CMS/HCC) PHOSPHORUS, PLASMA Routine 12/01/2024 8: 06 AM EDT Stage 3 chronic kidney disease, unspecified whether stage 3a or 3b CKD (CMS/HCC) VITAMIN D 25 HYDROXY Routine 12/01/2024 8:06 AM EDT Stage 3 chronic kidney disease, unspecified whether stage 3a or 3b CKD (CMS/HCC) PTH INTACT TOTAL Routine 12/01/2024 8:06 AM EDT Stage 3 chronic kidney disease, unspecified whether stage 3a or 3b CKD (CMS/HCC) CBC WITH AUTO DIFFERENTIAL Routine 12/01/2024 8:06 AM EDT Renal cell carcinoma, unspecified laterality COMPREHENSIVE METABOLIC PANEL, PLASMA Routine 12/01/2024 8:06 AM EDT Renal cell carcinoma, unspecified laterality COMPREHENSIVE METABOLIC PANEL, PLASMA Routine 11/17/2024 12:49 PM EDT Renal cell carcinoma, unspecified laterality CBC WITH AUTO DIFFERENTIAL Routine 11/17/2024 12:49 PM EDT Renal cell carcinoma, unspecified laterality TSH REFLEX FT4 Routine 11/17/2024 12:49 PM EDT Renal cell carcinoma, unspecified laterality ACUTE HEPATITIS PANEL Routine 12/08/2022 9:30 AM EDT Proteinuria, unspecified type from Last 3 Months or Most Recently Relevant to Health Maintenance Results * (ABNORMAL) CBC and differential (01/19/2025 9:13 AM EST) Only the most recent of5 resultswithin the time period is included. WBC Count 9.43 3.70 - 10.30 10*3/uL LAB HEMATOLOGY METHOD 01/19/2025 9:45 AM EST [facility] RBC Count 4.38(L) 4.60 - 6.10 10*6/uL LAB HEMATOLOGY METHOD 01/19/2025 9:45 AM EST [facility] HGB 12.3(L) 13.7 - 17.5 g/dL LAB HEMATOLOGY METHOD 01/19/2025 9:45 AM EST [facility] HCT 39.9(L) 40.0 - 51.0 % LAB HEMATOLOGY METHOD 01/19/2025 9:45 AM EST [facility] Platelet Count 283 155 - 369 10*3/uL LAB HEMATOLOGY METHOD 01/19/2025 9:45 AM EST [facility] MCV 91 79 - 98 fL LAB HEMATOLOGY METHOD 01/19/2025 9:45 AM EST [facility] MCH 28.1 26.0 - 32.0 pg LAB HEMATOLOGY METHOD 01/19/2025 9:45 AM EST [facility] MCHC 30.8 30.7 - 35.5 g/dL LAB HEMATOLOGY METHOD 01/19/2025 9:45 AM [facility] RDW 14.3 11.5 - 14.5 % LAB HEMATOLOGY METHOD 01/19/2025 9:45 AM EST [facility] MPV 9.3 8.8 - 12.5 fL LAB HEMATOLOGY METHOD 01/19/2025 9:45 AM [facility] nRBC 0.0 <=0.0 per 100 WBCs LAB HEMATOLOGY METHOD 01/19/2025 9:45 AM [facility] Differential Type Automated LAB HEMATOLOGY METHOD 01/19/2025 9:45 AM [facility] Neutrophils % 57 % LAB HEMATOLOGY METHOD 01/19/2025 9:45 AM [facility] Lymphocytes % 25 % LAB HEMATOLOGY METHOD 01/19/2025 9:45 AM [facility] Monocytes % 12 % LAB HEMATOLOGY METHOD 01/19/2025 9:45 AM [facility] Eosinophils % 4 % LAB HEMATOLOGY METHOD 01/19/2025 9:45 AM [facility] Basophils % 1 % LAB HEMATOLOGY METHOD 01/19/2025 9:45 AM [facility] Immature Granulocytes % 1 % LAB HEMATOLOGY METHOD 01/19/2025 9:45 AM [facility] Neutrophils Absolute 5.54 1.60 - 6.10 10*3/uL LAB HEMATOLOGY METHOD 01/19/2025 9:45 AM [facility] Lymphocytes Absolute 2.31 1.20 - 3.90 10*3/uL LAB HEMATOLOGY METHOD 01/19/2025 9:45 AM [facility] Monocytes Absolute 1.09(H) 0.30 - 0.90 10*3/uL LAB HEMATOLOGY METHOD 01/19/2025 9:45 AM [facility] Eosinophils Absolute 0.37 0.00 - 0.50 10*3/uL LAB HEMATOLOGY METHOD 01/19/2025 9:45 AM [facility] Basophils Absolute 0.06 0.00 - 0.10 10*3/uL LAB HEMATOLOGY METHOD 01/19/2025 9:45 AM [facility] Immature Granulocytes Absolute 0.06 0.00 - 0.06 10*3/uL LAB HEMATOLOGY METHOD 01/19/2025 9:45 AM [facility] Blood Venous blood specimen / Unknown Venipuncture / Unknown 01/19/2025 9:13 AM EST 01/19/2025 9:42 AM EST Narrative [facility] - 01/19/2025 9:45 AM EST Therapeutic decision making should be based on absolute values, rather than percentages. us Princess Troy MD LAB BLOOD ORDERABLES Fi nal Result [facility] [address] [place] [address] * (ABNORMAL) Comprehensive metabolic panel (01/19/2025 9:13 AM EST) Only the most recent of5 resultswithin the time period is included. Glucose, Plasma 116(H) 74 - 99 mg/dL 01/19/2025 10:34 AM EST [facility] BUN, Plasma 27(H) 8 - 23 mg/dL 01/19/2025 10:34 AM EST [facility] Creatinine, Plasma 2.05(H) 0.70 - 1.20 mg/dL 01/19/2025 10:34 AM EST [facility] BUN/Creatinine Ratio 13 01/19/2025 10:34 AM EST [facility] Sodium, Plasma 139 136 - 145 mmol/L 01/19/2025 10:34 AM EST [facility] Potassium, Plasma 4.4 3.6 - 4.9 mmol/L 01/19/2025 10:34 AM EST [facility] Chloride, Plasma 106 97 - 107 mmol/L 01/19/2025 10:34 AM EST [facility] CO2, Plasma 22 22 - 29 mmol/L 01/19/2025 10:34 AM EST [facility] Anion Gap 11 6 - 16 mmol/L 01/19/2025 10:34 AM EST [facility] Total Calcium, Plasma 8.4(L) 8.9 - 10.2 mg/dL 01/19/2025 10:34 AM EST [facility] Total Protein 6.5 6.3 - 7.9 g/dL 01/19/2025 10:34 AM EST [facility] Albumin, Plasma 3.6 3.5 - 5.2 g/dL 01/19/2025 10:34 AM EST [facility] AST, Plasma 19 10 - 50 U/L 01/19/2025 10:34 AM EST [facility] ALT, Plasma 11 10 - 50 U/L 01/19/2025 10:34 AM EST [facility] Alkaline Phosphatase, Plasma 59 40 - 115 U/L 01/19/2025 10:34 AM EST [facility] Total Bilirubin, Plasma <0.2(L) 0.2 - 1.1 mg/dL 01/19/2025 10:34 AM EST [facility] eGFRcr 34.4 mL/min/1.7 3m*2 01/19/2025 10:34 AM EST [facility] Comment:Reported eGFRcr in m L/min/1.73m2 is based the CKD-EPI 2020 equation that does not use a race coefficient. Blood Venous blood specimen / Unknown Venipuncture / Unknown 01/19/2025 9:13 AM EST 01/19/2025 9:57 AM EST us Princess Troy MD LAB BLOOD ORDERABLES Fi nal Result Performing Organization Address City/[facility]/ZIP Co de Phone Number [facility] [address] [place] [address] * Protein, Random, Urine with Creatinine (12/29/2024 8:34 AM EST) Only the most recent of2 resultswithin the time period is included. Protein, Urine 159 mg/dL 12/29/2024 9:28 AM EST [facility] Creatinine, Urine 56 mg/dL 12/29/2024 9:28 AM EST [facility] Protein/Creatin ine Ratio 2.8 mg/mg Creat 12/29/2024 9:28 AM EST [facility] Urine Urine specimen obtained by clean catch procedure / Unknown Non-blood Collection / Unknown 12/29/2024 8:34 AM EST 12/29/2024 8:58 AM EST us Lila Farris MD LAB URINE ORDERABLES Fi nal Result Performing Organization Address [facility]/ZIP Co de Phone Number [facility] [address] [place] [address] * TSH Reflex FT4 (12/08/2024 8:42 AM EST) Only the most recent of2 resultswithin the time period is included. Thyroid Stimulating Hormone, Plasma 1.31 0.40 - 4.20 uIU/mL 12/08/2024 9:54 AM EST [facility] Blood Venous blood specimen / Unknown Venipuncture / Unknown 12/08/2024 8:42 AM EST 12/08/2024 9:19 AM EST us Princess Troy MD LAB BLOOD ORDERABLES Fi nal Result [facility] [address] [place] [address] * (ABNORMAL) Urinalysis with reflex microscopic (Culture NOT Included) (12/01/2024 8:10 AM EDT) Color, Urine Yellow LAB URINALYSIS - AUTOMATED METHOD 12/01/2024 11:19 AM EDT [facility] Clarity, Urine Clear LAB URINALYSIS - AUTOMATED METHOD 12/01/2024 11:19 AM EDT [facility] Spec [place], Urine 1.016 1.005 - 1.030 LAB URINALYSIS - AUTOMATED METHOD 12/01/2024 11:19 AM EDT [facility] pH, Urine 6.0 5.0 - 8.0 LAB URINALYSIS - AUTOMATED METHOD 12/01/2024 11:19 AM EDT [facility] Protein, Urine 100(A) Negative mg/dL LAB URINALYSIS - AUTOMATED METHOD 12/01/2024 11:19 AM EDT [facility] Glucose, Urine >=1000(A) Negative mg/dL LAB URINALYSIS - AUTOMATED METHOD 12/01/2024 11:19 AM EDT [facility] Ketones, Urine Negative Negative mg/dL LAB URINALYSIS - AUTOMATED METHOD 12/01/2024 11:19 AM EDT [facility] Blood, Urine Negative Negative LAB URINALYSIS - AUTOMATED METHOD 12/01/2024 11:19 AM EDT [facility] Bilirubin, Urine Negative Negative LAB URINALYSIS - AUTOMATED METHOD 12/01/2024 11:19 AM EDT [facility] Urobilinogen, Urine 0.2 0.2 to 1.0 mg/dL LAB URINALYSIS - AUTOMATED METHOD 12/01/2024 11:19 AM EDT [facility] Leukocytes, Urine Negative Negative LAB URINALYSIS - AUTOMATED METHOD 12/01/2024 11:19 AM EDT [facility] Nitrite, Urine Negative Negative LAB URINALYSIS - AUTOMATED METHOD 12/01/2024 11:19 AM EDT [facility] Urine Urine specimen obtained by clean catch procedure / Unknown Non-blood Collection / Unknown 12/01/2024 8:10 AM EDT 12/01/2024 8:10 AM EDT Lila Farris MD LAB URINE ORDERABLES Fi nal Result Performing Organization Address [facility] Co de Phone Number [facility] [address] [place] [address] * Vitamin D 25 Hydroxy (12/01/2024 8:06 AM EDT) Vitamin D 25 Hydroxy 32.1 20.0 - 80.0 ng/mL 12/01/2024 2:27 PM EDT [facility] Blood Venous blood specimen / Unknown Venipuncture / Unknown 12/01/2024 8:06 AM EDT 12/01/2024 8:06 AM EDT Narrative [facility] - 12/01/2024 2:27 PM EDT Testing performed on [employer] Or Caravan Salesperson, standardized against NIST SRM 2972. When testing samples from patients whose predominant form of vitamin D is vitamin D2, such as patients receiving vitamin D2 supplementation, results that are subtherapeutic should be confirmed with another method, such as LC-MS/MS, before being used for patient management. Vitamin D, 25-Hydroxy reference range, age 18 years and up: Deficiency: <12 ng/mL Insufficiency: 12 to 19 ng/mL Sufficiency: 20 to 80 ng/mL Possible toxicity: >100 ng/mL us Lila Farris MD LAB BLOOD ORDERABLES Fi nal Result Performing Organization Address City/[facility]/ZIP Co de Phone Number [facility] [address] [place] [address] * Phosphorus, Plasma (12/01/2024 8:06 AM EDT) [facility] Phosphorus, Plasma 3.4 2.5 - 4.5 mg/dL 12/01/2024 11:38 AM EDT [facility] Blood Venous blood specimen / Unknown Venipuncture / Unknown 12/01/2024 8:06 AM EDT 12/01/2024 8:06 AM EDT Lila Farris MD LAB BLOOD ORDERABLES Fi nal Result Performing Organization Address City/[facility] Co de Phone Number [facility] [address] [place] [address] * (ABNORMAL) PTH, intact (12/01/2024 8:06 AM EDT) [facility] PTH Intact Total 113(H) 9 - 77 pg/mL 12/01/2024 2:08 PM EDT [facility] Blood Venous blood specimen / Unknown Venipuncture / Unknown 12/01/2024 8:06 AM EDT 12/01/2024 8:06 AM EDT Narrative [facility] - 12/01/2024 2:08 PM EDT Assay performed by immunoassay at the [facility]. Performed on [employer] Caravan Salesperson chemiluminescent immunoassay, tractable to the World Health Organization's first international standard for PTH from the [employer], Code 79/500. Results obtained from different test methods or kits cannot be used interchangeably. us Lila Farris MD LAB BLOOD ORDERABLES Fi nal Result [facility] [address] [place] [address] * Hepatitis panel, acute (12/08/2022 9:30 AM EDT) [facility] Hepatitis B Surf Antigen Negative Negative 12/08/2022 2:47 PM EDT [facility] Hepatitis C Antibody Negative Negative 12/08/2022 2:47 PM EDT [facility] Hepatitis A Antibody IgM Negative Negative 12/08/2022 2:47 PM EDT [facility] Hepatitis B Core Antibody IgM Negative Negative 12/08/2022 2:47 PM EDT [facility] Blood Venous blood specimen / Unknown Venipuncture / Unknown 12/08/2022 9:30 AM EDT 12/08/2022 9:30 AM EDT us Lila Farris MD LAB BLOOD ORDERABLES Fi nal Result [facility] [address] [place] [address] from Last 3 Months or Most Recently Relevant to Health Maintenance Insurance [employer] MEDICARE Care Teams Blow Moulding Machine Operator Relationship Specialty Start Date End Date Brandi Ramírez APRN [id number] PCP - General 04/26/22
[2025-01-27 13:40] LABS: Hematocrit 39.1 % (42.0-52.0); Hemoglobin 12.3 g/dL (14.1-18.0); Immature Granulocytes % 0.9 %; Mean Corpuscular HGB Conc 31.5 g/dL (31.8-35.4); Mean Corpuscular Hemoglobin 28.2 pg (27.0-31.2); Mean Corpuscular Volume 89.7 fl (80-94); Nucleated Red Blood Cells % 0 %; Platelet Count 350 K/mm3 (142-424); Red Blood Count 4.36 M/mm3 (4.60-6.20); Red Cell Distribution Width-SD 48.4 fL; White Blood Count 17.3 K/mm3 (4.8-10.8)
[2025-01-27 14:03] LABS: Chloride 111 mmol/L (98-107); Potassium 3.5 mmoL/L (3.5-5.1); Sodium 140 mmol/L (136-145)
[2025-01-27 14:06] LABS: Anion Gap 16.5 mEq/L (5-15); Blood Urea Nitrogen 33 mg/dl (9-20); Carbon Dioxide 16 mmol/L (22.0-30.0); Creatinine,Serum 2.90 mg/dl (0.66-1.25); Estimated Glomerular Filt Rate 22 ml/min (>60); GFR (African American) 26 ML/MIN (>60); Glucose 105 mg/dl (74-100)
[2025-01-27 14:07] LABS: Calcium 9.1 mg/dl (8.4-10.2); Magnesium 1.8 mg/dl (1.6-2.3)
== END 2025-01-27 23:59 | disposition home or self-care (01) ==
LOC: LAB 12:54
PROVIDERS: PCP Nurse Practitioner Family; Visit Provider Nurse Practitioner Family
DX: R11.10 Vomiting, unspecified (principal); R19.7 Diarrhea, unspecified
CPT/HCPCS: 36415; 80048; 83735; 85025